=== PATIENT | female | born 1985 | race African-American/Black ===

== ENCOUNTER 2016-02-26 22:39 | Inpatient (IN) ==
[2016-02-26] MEDS ORDERED: ONDANSETRON 4 MG/2 ML VIAL IV STA (23:43)
[2016-02-26] MEDS ORDERED: PANTOPRAZOLE 40 MG VIAL IV STA (23:43)
[2016-02-26] MEDS ORDERED: SODIUM CHLORIDE 0.9% 1,000 ML IV STA (23:43)
[2016-02-26] MEDS ORDERED: ALUM/MAG/SIMETH/LIDO VISC 1:1 30 ML BOTTLE PO STA (23:43)
[2016-02-26] MEDS ORDERED: HYDROmorphone 2 MG/1 ML VIAL IV STA (23:43)
--- NOTE | 2016-02-27 | Emergency Department Note ---
Victor Hugo Johns [place], am scribing for, and in the presence of, Giovany Sullivan MD 23:49. Nate Johns Charles R, MD, personally performed the services described in this documentation, ascribed by Rolando Gay in my presence, and it is both accurate and complete . Arrival - Arrival Chief Complaint: Sickle Cell Stated Complaint: SICKLE CELL CRISIS ED Nursing Triage Note: pt presented to triage ambulatory via w/c with c/o lower back pain and sarah knee pain and N/V. pt has hx of SCD. pain unrelieved with morphine and diluadid at home. pain worse tonight. pt also c/o swelling to face and neck x 2 days and TOLENTINO. Mode of Arrival: Wheelchair Limitations: No Limitations Source: Patient Time Seen by Provider: 02/26/16 23:30 - History of Present Illness HPI Narrative: Pt is a 30 y/o black female presenting to the ED with c/o lower back pain, bilateral knee, pain,TOLENTINO, chest pain, and nausea/vomiting. Pt states the base of her neck has questionable swelling. Pt has PMHx of sickle cell. She took Zofran for the nausea but states this did not work. Pt states she has not had any urinary sxs. Pt denies fever, chills, and diarrhea. Consistency: constant Severity: moderate Date of Last Menstrual Period: 02/01/16 Allergies/Adverse Reactions: Allergies Allergy/AdvReac Type Severity Reaction Status Date / Time plastic tape Allergy ITCHING Uncoded 10/09/15 21:05 Home Medications: Home Medications Medication Instructions Recorded Confirmed Type Folic Acid Tab 1 mg PO DAILY tablet 05/25/14 02/20/16 Rx HYDROmorphone TAB [Dilaudid Tab] 4 mg PO Q4H PRN 09/03/14 02/20/16 History Morphine ER Tab [Ms Contin] 30 mg PO Q12H PRN 12/03/14 02/20/16 History Morphine Ir Tab [Morphine IR Tab] 15 mg PO Q4HR PRN 12/03/14 02/20/16 History Deferasirox [Jadenu] 4 tablet PO DAILY 04/26/15 02/20/16 History Hydroxyurea [Hydrea] 2 tablet PO DAILY 04/26/15 02/20/16 History Rivaroxaban [Xarelto] 20 mg PO DAILY W/SUPPER tablet 10/16/15 02/20/16 Rx Azithromycin [Zithromax] 500 mg PO DAILY #5 tablet 02/20/16 Rx Review of System - Review of System 12 point system: reviewed and no additional remarkable complaints except as stated - Review of System Constitutional: Absent: chills, weakness Eyes: Absent: vision change Head/Ears/Nose/Throat: Absent: earache, nasal drainage Respiratory: Absent: cough, wheezing Cardiovascular: Absent: chest pain, dyspnea on exertion Gastrointestinal: Present: nausea, vomiting. Absent: abdominal pain, diarrhea Genitourinary female: Absent: dysuria Musculoskeletal: Present: arm pain, back pain, leg pain, neck pain, upper back pain Skin: Absent: rash Neurological: Present: headache. Absent: weakness, numbness, confusion, abnormal gait, vertigo Psychiatric: Absent: anxiety Endocrine: Absent: fatigue Allergic/Immunologic: Absent: facial swelling Medical,Surgical,& Family Hx - Medical History Psychological: History of: Anxiety Disorders HEENT: History of: HEENT Problems (nose bleed) Respiratory: History of: Bronchitis, Pneumonia Hematology: History of: Anemia, Sickle Cell Disease, Blood Disorders - Surgical History Thoracic Surgeries: Patient denies;: Organ Transplant, Lobectomy Neurologic Surgeries: Patient denies: Neurologic Surgery HEENT Surgeries: Surgical HX of: Tonsilectomy & Adenoidectomy (1993) Abdominal Surgeries: Surgical HX of: Appendectomy, Cholecystectomy (2005) Reproductive Surgeries: Patient denies;: Genitourinary Surgery Orthopedic Surgeries: Surgical HX of;: Orthopedic Surgery (left sholder replacement in 2008), Total Hip Replacement (2007) - Family History Family History: Reports;: Family Hypertension (grandmother) Denies;: Family Diabetes Comment Only: Family Cancer (grandfather had mouth cancer) - Social History Smoking Status: Never smoker Frequency of Alcohol Use: None Type of Drug Use: None Exam Vital Signs: Vital Signs Temperature 98.9 F 02/26/16 22:51 Pulse Rate 92 H 02/26/16 22:51 Respiratory Rate 16 02/26/16 22:51 Blood Pressure 106/65 02/26/16 22:51 O2 Sat by Pulse Oximetry 94 L 02/26/16 22:51 - General General appearance: alert, in no apparent distress - Head Head exam: Present: atraumatic, normocephalic, normal inspection - Eye Eye exam: Present: normal appearance, PERRL, EOMI - ENT ENT exam: Present: normal exam, normal oropharynx, mucous membranes moist, TM's normal bilaterally, normal external ear exam - Neck Neck exam: Present: normal inspection, full ROM, trachea midline, other ( questionable neck edema ). Absent: tenderness - Chest Chest inspection: Present: normal inspection, symmetric chest wall rise. Absent : tenderness - Respiratory Respiratory exam: Present: normal lung sounds bilaterally - Cardiovascular Cardiovascular exam: Present: normal rhythm, tachycardia, normal heart sounds. Absent: regular rate - Abdominal Exam Abdominal exam: Present: soft, normal bowel sounds. Absent: distention, tenderness - Extremities Exam Extremities exam: Present: normal inspection, full ROM, normal capillary refill. Absent: tenderness, pedal edema, calf tenderness - Back Exam Back exam: Present: normal inspection, full ROM. Absent: tenderness - Neurological Exam Neurological exam: Present: alert, oriented X3, CN II-XII intact, normal gait, reflexes normal - Psychiatric Psychiatric exam: Present: normal affect, normal mood - Skin Skin exam: Present: warm, dry, intact, normal color. Absent: rash Course - Consultations Consultation #1: Dr. Hdez will admit patient Time: 01:09 Results - Labs CBC & BMP: 02/26/16 00:07 Lab Results: I have reviewed the patients labs Disposition Clinical Impression: Anemia, Sickle cell pain crisis, Sickle cell disease, history of avascular necrosis, Acute pain Case discussed with: patient, patient's family Disposition: Still a Patient Condition: Stable Time of Disposition: 01:09
[2016-02-27] MEDS ORDERED: ONDANSETRON 4 MG/2 ML VIAL ONE (00:03)
[2016-02-27] MEDS ORDERED: PANTOPRAZOLE 40 MG VIAL IV ONE (00:03)
[2016-02-27] MEDS ORDERED: HYDROmorphone 2 MG/1 ML VIAL ONE ×2 (00:03→01:45)
[2016-02-27] MEDS ORDERED: ALUM/MAG/SIMETH/LIDO VISC 1:1 30 ML BOTTLE PO ONE (00:04)
[2016-02-27] MEDS ORDERED: diphenhydrAMINE CAP 50 MG CAPSULE ONE (00:32)
[2016-02-27] MEDS ORDERED: PROMETHAZINE 25 MG/1 ML VIAL ONE (00:32)
[2016-02-27 00:46] LABS: Basophils % 0.1 % (0.0-0.8); Eosinophils # 0.8 10*3/uL (0.0-0.87); Eosinophils % 5.8 % (0.00-10.9); Immature Granulocytes % 0.4 %; Immature Granulocytes Absolute 0.05 #; Lymphocytes # 5.9 10*3/uL (1.4-4.0); Lymphocytes % 41.3 % (21.3-54.2); Mean Corpuscular HGB Conc 35.2 GM/DL (32-36); Mean Corpuscular Hemoglobin 34 PG (27-34); Mean Corpuscular Volume 96.7 FL (87-102); Mean Platelet Volume 10.7 FL (9.6-12.0); Monocytes # 1.2 10*3/uL (0.11-0.8); Monocytes % 8.1 % (1.7-12.7); NRBC # 1.02 10*3/uL; Neutrophils # 6.3 10*3/uL (1.4-7.4); Neutrophils % 44.3 % (38.7-73.9); Platelet Count 306 10*3/uL (130-400); Red Blood Count 1.82 10*6/uL (3.8-5.5); Red Cell Distribution Width 20.3 % (9.3-17.3); White Blood Count 14.3 10*3/uL (4.5-13.71)
[2016-02-27 00:53] LABS: Hemoglobin 6.2 GM/DL (12.0-16.0)
[2016-02-27 00:54] LABS: Hematocrit 17.6 VOL% (35.7-47.0)
[2016-02-27 01:04] LABS: Apearance,Urine CLEAR (Clear); Bilirubin,Urine Negative (Negative); Blood, Urine Moderate mg/dL (Negative); Glucose,Urine (UA) Negative (Negative); Ketones,Urine Negative (Negative); Nitrite,Urine Negative (Negative); Protein,Urine 100 MG/DL; RBC,Urine 2 /HPF (0-4); Squamous Epithelial Cell,Urine Occasional /HPF (0-10); Urine Color Yellow (Yellow); Urine Specific Gravity 1.011 (1.001-1.035); WBC,Urine <1 /HPF (0-6)
[2016-02-27 01:16] LABS: Lactic Acid 0.9 MMOL/L (0.4-2.0)
[2016-02-27 01:18] LABS: Eosinophils 7 % (0-10); Lymphocytes 45 % (20-55); Nucleated Red Blood Cells 5 (0-5); Segmented Neutrophils 42 % (50-85); Total Cells Counted 100
[2016-02-27 01:19] LABS: Alanine Aminotransferase 57 U/L (13-56); Albumin 3.3 G/DL (3.4-5.0); Alkaline Phosphatase 103 U/L (45-117); Amylase 55 U/L (25-115); Aspartate Amino Transferase 87 U/L (0-37); Blood Urea Nitrogen 16 MG/DL (7-18); Calcium 8.4 MG/DL (8.5-10.1); Glucose 88 MG/DL (74-106); Magnesium 1.9 MG/DL (1.8-2.4); Potassium 4.2 MMOL/L (3.5-5.1); Sodium 143 MMOL/L (136-145); Total Protein 7.7 G/DL (6.4-8.3); Troponin I Only < 0.015 NG/ML (0.00-0.045)
[2016-02-27 01:23] LABS: Sickle Cells 1+
--- NOTE | 2016-02-27 01:23 | Hospitalist History & Physical ---
Assessment and Plan (1) Sickle cell pain crisis Status: Acute Current Visit: Yes (2) Sickle cell anemia Status: Acute Current Visit: No (3) history of avascular necrosis Status: Acute Current Visit: No (4) Anemia, chronic disease Status: Chronic Assessment and plan: Plan for this patient #1 admit the patient our service #2 IV narcotics #3 by mouth Benadryl #4 home meds as appropriate #5 the patient will most likely need a transfusion. Current Visit: No History of Present Illness Chief complaint: sickle cell pain History of present illness: Ms. Victor Hugo Stack is a 30 year old female with past medical history sickle cell pain well-known to our service presents the ER tonight. Patient states that she 's been hurting for several days. She's been rate previously seen last week in the ER and got some Rocephin and a Z-Jefferson. Patient felt like she having some facial swelling although is mild and having her usual pain crisis. Patient reports she hurts all over. Patient's had nausea and headache 1 day. She's been trying to take her by mouth medications but has not been having good results. Her H&H was significantly reduced from last time in the er I was consulted to admit her. Home Medications Medication Instructions Recorded Confirmed Type Folic Acid Tab 1 mg PO DAILY tablet 05/25/14 02/20/16 Rx HYDROmorphone TAB [Dilaudid Tab] 4 mg PO Q4H PRN 09/03/14 02/20/16 History Morphine ER Tab [Ms Contin] 30 mg PO Q12H PRN 12/03/14 02/20/16 History Morphine Ir Tab [Morphine IR Tab] 15 mg PO Q4HR PRN 12/03/14 02/20/16 History Deferasirox [Jadenu] 4 tablet PO DAILY 04/26/15 02/20/16 History Hydroxyurea [Hydrea] 2 tablet PO DAILY 04/26/15 02/20/16 History Rivaroxaban [Xarelto] 20 mg PO DAILY W/SUPPER tablet 10/16/15 02/20/16 Rx Azithromycin [Zithromax] 500 mg PO DAILY #5 tablet 02/20/16 Rx Allergies Allergy/AdvReac Type Severity Reaction Status Date / Time plastic tape Allergy ITCHING Uncoded 10/09/15 21:05 Medical,Surgical,& Family Hx - Medical History Psychological: History of: Anxiety Disorders HEENT: History of: HEENT Problems (nose bleed) Respiratory: History of: Bronchitis, Pneumonia Hematology: History of: Anemia, Sickle Cell Disease, Blood Disorders - Surgical History Thoracic Surgeries: Patient denies;: Organ Transplant, Lobectomy Neurologic Surgeries: Patient denies: Neurologic Surgery HEENT Surgeries: Surgical HX of: Tonsilectomy & Adenoidectomy (1993) Abdominal Surgeries: Surgical HX of: Appendectomy, Cholecystectomy (2005) Reproductive Surgeries: Patient denies;: Genitourinary Surgery Orthopedic Surgeries: Surgical HX of;: Orthopedic Surgery (left sholder replacement in 2008), Total Hip Replacement (2007) - Family History Family History: Reports;: Family Hypertension (grandmother) Denies;: Family Diabetes Comment Only: Family Cancer (grandfather had mouth cancer) - Social History Smoking Status: Never smoker Frequency of Alcohol Use: None Type of Drug Use: None 12 point system: reviewed and no additional remarkable complaints except as stated Exam - Constitutional Vitals: Period Temp Pulse Resp BP Sys/Whaley Pulse Ox Last 24 Hr 98.9 F 92 16 106/65 94 - General General appearance: alert, in no apparent distress - Head Head exam: Present: atraumatic, normocephalic, normal inspection - Eye Eye exam: Present: normal appearance, PERRL, EOMI - ENT ENT exam: Present: normal exam, normal oropharynx, mucous membranes moist, TM's normal bilaterally, normal external ear exam - Neck Neck exam: Present: normal inspection, full ROM, trachea midline, other ( questionable neck edema ). Absent: tenderness - Chest Chest inspection: Present: normal inspection, symmetric chest wall rise. Absent : tenderness - Respiratory Respiratory exam: Present: normal lung sounds bilaterally - Cardiovascular Cardiovascular exam: Present: normal rhythm, tachycardia, normal heart sounds. Absent: regular rate - Abdominal Exam Abdominal exam: Present: soft, normal bowel sounds. Absent: distention, tenderness - Extremities Exam Extremities exam: Present: normal inspection, full ROM, normal capillary refill. Absent: tenderness, pedal edema, calf tenderness - Back Exam Back exam: Present: normal inspection, full ROM. Absent: tenderness - Neurological Exam Neurological exam: Present: alert, oriented X3, CN II-XII intact, normal gait, reflexes normal - Psychiatric Psychiatric exam: Present: normal affect, normal mood - Skin Skin exam: Present: warm, dry, intact, normal color. Absent: rash Results - Labs CBC & BMP: 02/26/16 00:07
[2016-02-27 01:24] LABS: Target Cells Few
[2016-02-27 01:28] LABS: Platelet Estimate Normal
[2016-02-27 01:29] LABS: Anisocytosis 2+; Microcytosis 2+
[2016-02-27] MEDS ORDERED: ENOXAPARIN 40 MG/0.4 ML SYRINGE SUBCUT SCH (01:30)
[2016-02-27] MEDS ORDERED: SODIUM CHLORIDE 0.9% 250 ML IV PRN (01:41)
[2016-02-27] MEDS: HYDROmorphone 2 MG/1 ML VIAL IV PRN ×7 (01:52→22:33)
[2016-02-27] MEDS ORDERED: diphenhydrAMINE CAP 50 MG CAPSULE PO STA (01:57)
[2016-02-27] MEDS ORDERED: PROMETHAZINE INJ 25 MG in SODIUM CHLORIDE 0.9% 50 ML IV STA (01:58)
[2016-02-27] MEDS ORDERED: PROMETHAZINE 25 MG/1 ML VIAL IM STA (02:00)
[2016-02-27] MEDS: SODIUM CHLORIDE 0.9% 1,000 ML IV SCH ×2 (02:49→10:33)
[2016-02-27 05:54] LABS: Albumin 3.4 G/DL (3.4-5.0); Bilirubin,Total 1.8 MG/DL (0.2-1.0); Calcium 7.9 MG/DL (8.5-10.1); Potassium 4.3 MMOL/L (3.5-5.1); Total Protein 7.5 G/DL (6.4-8.3)
[2016-02-27] MEDS ORDERED: diphenhydrAMINE CAP 25 MG CAPSULE PO SCH (06:00)
--- NOTE | 2016-02-27 06:38 | XRay Report ---
XR abdomen 2V Indication: Abdominal pain. Abdomen 3 views: Bilateral SUDHEER noted. Patient is osteopenic. Normal amount of stool and gas is shown the colon. There is a paucity of central bowel markings similar to the study from 12/08/14. Liver is enlarged with the right lobe extending well into the right pelvis. Right upper quadrant surgical clips noted. Impression: No bowel obstruction identified. Hepatomegaly. PROCEDURE INTERPRETED AT [facility] DEPARTMENT OF RADIOLOGY Final Report Signed by: Jeff Medina M.D.
--- NOTE | 2016-02-27 06:39 | XRay Report ---
XR chest 1V portable Indication: Abdominal pain. Chest one view: Comparison 02/20/16. Mediport, normal heart size and mediastinal contour, coarsened interstitial markings throughout both lungs without focal infiltrate, left shoulder hemiarthroplasty, and coarsened trabecular features of the bones are stable. No new infiltrates are identified. Impression: Little significant change. Suspect sickle cell crisis. PROCEDURE INTERPRETED AT [facility] DEPARTMENT OF RADIOLOGY Final Report Signed by: Jeff Medina M.D.
[2016-02-27 06:58] LABS: Basophils % 0.1 % (0.0-0.8); Eosinophils % 6.7 % (0.00-10.9); Immature Granulocytes % 0.4 %; Immature Granulocytes Absolute 0.06 #; Lymphocytes # 7.2 10*3/uL (1.4-4.0); Lymphocytes % 49.3 % (21.3-54.2); Mean Corpuscular HGB Conc 35.4 GM/DL (32-36); Mean Corpuscular Hemoglobin 35 PG (27-34); Mean Corpuscular Volume 98.3 FL (87-102); Mean Platelet Volume 10.5 FL (9.6-12.0); Monocytes # 1.3 10*3/uL (0.11-0.8); NRBC # 1.01 10*3/uL; Neutrophils % 34.5 % (38.7-73.9); Platelet Count 273 10*3/uL (130-400); Red Blood Count 1.78 10*6/uL (3.8-5.5); Red Cell Distribution Width 19.9 % (9.3-17.3); White Blood Count 14.5 10*3/uL (4.5-13.71)
[2016-02-27 07:09] LABS: Hematocrit 17.5 VOL% (35.7-47.0); Hemoglobin 6.2 GM/DL (12.0-16.0)
[2016-02-27 07:23] LABS: Elliptocytes Few; Eosinophils 5 % (0-10); Lymphocytes 58 % (20-55); Macrocytosis Slight; Nucleated Red Blood Cells 16 (0-5); Platelet Estimate Adequate; Polychromasia Slight; Segmented Neutrophils 28 % (50-85); Sickle Cells 1+; Target Cells Few; Total Cells Counted 100
[2016-02-27] MEDS ORDERED: HYDROXYUREA 500 MG CAPSULE PO SCH (09:00)
[2016-02-27] MEDS ORDERED: FOLIC ACID 1 MG TABLET PO SCH (09:00)
[2016-02-27] MEDS ORDERED: DEFERASIROX PO SCH (09:00)
[2016-02-27] MEDS ORDERED: PANTOPRAZOLE 40 MG TABLET PO SCH (09:00)
--- NOTE | 2016-02-27 09:03 | EKG Report ---
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
--- NOTE | 2016-02-27 09:51 | Hospitalist Progress Note ---
<RadhaRosmery N - Last Filed: 02/27/16 09:46> Assessment and Plan (1) Anemia Status: Acute Assessment and plan: transfuse 2 units when available, Current Visit: Yes (2) Sickle cell pain crisis Status: Acute Assessment and plan: continue on IV hydration change Benadryl to IV continue IV narcotics and PO home narcotics start on supplemental O2 per NC pt is sitting in bed with rails down and bed elevated, nursing staff and myself have educated her on the dangers of this, she has refused compliance. Current Visit: Yes Hospitalist: Subjective Interval history: Ms. Stack is seen this morning sitting up in bed, crying, complaining of generalized pain and itching. She is currently not on oxygen, is receiving PO Benadryl and IV narcotics. Her H/H this morning is 07/27, due the difficulty in obtaining compatible blood for her, she will not be able to receive her transfusion until hopefully tomorrow. Exam - Constitutional Vitals: Period Temp Pulse Resp BP Sys/Whaley Pulse Ox Last 24 Hr 97.6 F-97.9 F 81-101 20-20 94-102/52-58 92-96 General appearance: no acute distress - Head Head exam: Present: normal inspection, normocephalic - Eye Eye exam: Present: EOMI. Absent: scleral icterus Pupils: Present: XENIA, normal accommodation - ENT ENT exam: Present: normal exam, normal oropharynx - Neck Neck exam: Present: normal inspection. Absent: lymphadenopathy - Respiratory Respiratory exam: Present: clear to auscultation bilaterally. Absent: wheezes - Cardiovascular Cardiovascular exam: Present: regular rate and rhythm. Absent: tachycardia - GI/Abdominal GI/Abdominal exam: Present: normal bowel sounds, soft. Absent: tenderness - Extremities Exam Extremities exam: Present: normal inspection, full ROM. Absent: edema - Back Exam Back exam: Present: normal inspection. Absent: muscle spasm - Neurological Exam Neurological exam: Present: alert, oriented X3 - Psychiatric Psychiatric exam: Present: normal affect, normal mood - Skin Skin exam: Present: normal color, warm, dry Results - Labs CBC & BMP: 02/27/16 05:38 02/27/16 05:38 Lab Results: I have reviewed the past 24 hour labs <Deborah Yeung - Last Filed: 02/27/16 17:35> Hospitalist: Subjective Interval history: This is an addendum to PROCESSING ENGINEER note: agree with A/P Pt is alert, oriented, no distress noted, itching all over c/o generalized weakness, worse in lower back HH -6:17 this am, stable since admit, total bili 1.8 waiting for RBCs to be transfused, may not be able to receive blood today/ tonight due to compatibility cont IV dilaudid 2 mg IV q 3 hrs and benadryl 25 mg PRN cont hydroxyurea and folic acid IV fluids as per protocol and O2 L PRN for SOB recheck HH in am Exam - Constitutional Vitals: Period Temp Pulse Resp BP Sys/Whaley Pulse Ox Last 24 Hr 97.1 F-97.9 F 81-101 18-20 94-102/52-59 92-96 Results - Labs CBC & BMP: 02/27/16 05:38 02/27/16 05:38
[2016-02-27] MEDS: diphenhydrAMINE 50 MG/1 ML VIAL IV PRN ×3 (10:32→22:33)
[2016-02-27] MEDS: HYDROXYUREA 500 MG CAPSULE PO SCH (16:37)
[2016-02-27] MEDS: PANTOPRAZOLE 40 MG TABLET PO SCH (16:37)
[2016-02-27] MEDS: FOLIC ACID 1 MG TABLET PO SCH (16:37)
[2016-02-27] MEDS: RIVAROXABAN 20 MG TABLET PO SCH (16:37)
[2016-02-27] MEDS: ONDANSETRON 4 MG/2 ML VIAL IV PRN (23:49)
[2016-02-28] MEDS: HYDROmorphone 2 MG/1 ML VIAL IV PRN ×8 (01:39→22:48)
[2016-02-28] MEDS: diphenhydrAMINE 50 MG/1 ML VIAL IV PRN ×4 (04:51→22:49)
[2016-02-28] MEDS: SODIUM CHLORIDE 0.9% 1,000 ML IV SCH ×3 (05:23→16:28)
[2016-02-28 05:36] LABS: Basophils % 0.3 % (0.0-0.8); Eosinophils # 0.9 10*3/uL (0.0-0.87); Eosinophils % 6.3 % (0.00-10.9); Hematocrit 20.4 VOL% (35.7-47.0); Hemoglobin 7.2 GM/DL (12.0-16.0); Immature Granulocytes % 0.6 %; Immature Granulocytes Absolute 0.08 #; Lymphocytes # 6.2 10*3/uL (1.4-4.0); Lymphocytes % 42.6 % (21.3-54.2); Mean Corpuscular HGB Conc 35.3 GM/DL (32-36); Mean Corpuscular Hemoglobin 33 PG (27-34); Mean Corpuscular Volume 94.4 FL (87-102); Mean Platelet Volume 10.8 FL (9.6-12.0); Monocytes # 1.2 10*3/uL (0.11-0.8); Monocytes % 8.6 % (1.7-12.7); NRBC # 1.08 10*3/uL; Neutrophils # 6.1 10*3/uL (1.4-7.4); Neutrophils % 41.6 % (38.7-73.9); Platelet Count 328 10*3/uL (130-400); Red Blood Count 2.16 10*6/uL (3.8-5.5); Red Cell Distribution Width 19.5 % (9.3-17.3); White Blood Count 14.5 10*3/uL (4.5-13.71)
[2016-02-28 06:06] LABS: Albumin 3.6 G/DL (3.4-5.0); Bilirubin,Total 1.9 MG/DL (0.2-1.0); Calcium 8.6 MG/DL (8.5-10.1); Osmolality,Calculated 285.8 MOS/KG (273-304); Potassium 4.9 MMOL/L (3.5-5.1); Total Protein 7.9 G/DL (6.4-8.3)
--- NOTE | 2016-02-28 11:18 | Hospitalist Progress Note ---
<RadhaRosmery N - Last Filed: 02/28/16 11:16> Assessment and Plan (1) Anemia Status: Acute Assessment and plan: one more unit if necessary and when available Current Visit: Yes (2) Sickle cell pain crisis Status: Acute Assessment and plan: continue on IV hydration change Benadryl to IV continue IV narcotics and PO home narcotics start on supplemental O2 per NC pt is sitting in bed with rails down and bed elevated, nursing staff and myself have educated her on the dangers of this, she has refused compliance. Current Visit: Yes Hospitalist: Subjective Interval history: Ms. Gay is seen this morning, she was asleep when I walked in, easily aroused , states she is still in severe pain. She was able to get one unit of blood, counts minimally improved. We will continue IV hydration, supplemental O2, IV narcotics and Benadryl. Exam - Constitutional Vitals: Period Temp Pulse Resp BP Sys/Whaley Pulse Ox Last 24 Hr 97.1 F-98.7 F 86-104 16-21 94-127/51-64 91-93 General appearance: no acute distress - Head Head exam: Present: normal inspection, normocephalic - Eye Eye exam: Present: EOMI. Absent: scleral icterus Pupils: Present: XENIA, normal accommodation - ENT ENT exam: Present: normal exam, normal oropharynx - Neck Neck exam: Present: normal inspection. Absent: lymphadenopathy - Respiratory Respiratory exam: Present: clear to auscultation bilaterally. Absent: wheezes - Cardiovascular Cardiovascular exam: Present: regular rate and rhythm. Absent: tachycardia - GI/Abdominal GI/Abdominal exam: Present: normal bowel sounds, soft. Absent: tenderness - Extremities Exam Extremities exam: Present: normal inspection, full ROM. Absent: edema - Back Exam Back exam: Present: normal inspection. 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: Pt is alert, oriented, some distress noted due to back pain s/p 1 unit RBC transfused last night and 1 more is ready to be transfused now cont IV dilaudid 2 mg IV q 3 hrs and benadryl 25 mg PRN cont hydroxyurea and folic acid O2 L PRN for SOB HH went up to recheck HH in am 7.2/20.4 (from 6.2) total bili is up to 1.9, possibly still sickling she has b/l exophtalmus and some orbital edema will check her TSH, free T4 recheck HH in am Exam - Constitutional Vitals: Period Temp Pulse Resp BP Sys/Whaley Pulse Ox Last 24 Hr 97.1 F-98.7 F 86-104 16-21 94-127/51-64 91-93 Results - Labs CBC & BMP: 02/28/16 04:55 02/28/16 04:55
[2016-02-28] MEDS: FOLIC ACID 1 MG TABLET PO SCH ×2 (13:37→16:38)
[2016-02-28] MEDS: PANTOPRAZOLE 40 MG TABLET PO SCH ×2 (13:37→16:38)
[2016-02-28] MEDS: HYDROXYUREA 500 MG CAPSULE PO SCH ×2 (13:37→16:38)
[2016-02-28] MEDS: RIVAROXABAN 20 MG TABLET PO SCH (16:38)
[2016-02-29] MEDS: HYDROmorphone 2 MG/1 ML VIAL IV PRN ×7 (01:43→22:12)
[2016-02-29] MEDS: ONDANSETRON 4 MG/2 ML VIAL IV PRN (04:15)
[2016-02-29] MEDS: diphenhydrAMINE 50 MG/1 ML VIAL IV PRN ×4 (04:17→22:11)
[2016-02-29 05:27] LABS: Basophils % 0.4 % (0.0-0.8); Eosinophils # 0.8 10*3/uL (0.0-0.87); Eosinophils % 7.4 % (0.00-10.9); Hemoglobin 7.4 GM/DL (12.0-16.0); Immature Granulocytes % 0.3 %; Immature Granulocytes Absolute 0.03 #; Lymphocytes # 4.6 10*3/uL (1.4-4.0); Lymphocytes % 44.4 % (21.3-54.2); Mean Corpuscular HGB Conc 33.6 GM/DL (32-36); Mean Corpuscular Hemoglobin 32 PG (27-34); Mean Corpuscular Volume 96.1 FL (87-102); Mean Platelet Volume 10.6 FL (9.6-12.0); Monocytes # 0.9 10*3/uL (0.11-0.8); Monocytes % 8.5 % (1.7-12.7); NRBC # 1.19 10*3/uL; Platelet Count 281 10*3/uL (130-400); Red Blood Count 2.29 10*6/uL (3.8-5.5); Red Cell Distribution Width 19.9 % (9.3-17.3); White Blood Count 10.3 10*3/uL (4.5-13.71)
[2016-02-29 06:31] LABS: Eosinophils 9 % (0-10); Hypochromasia 1+; Lymphocytes 51 % (20-55); Macrocytosis 1+; Nucleated Red Blood Cells 19 (0-5); Polychromasia Slight; Segmented Neutrophils 31 % (50-85); Sickle Cells 1+; Total Cells Counted 100
[2016-02-29 06:32] LABS: Target Cells Slight
[2016-02-29 06:33] LABS: Howell-Jolly Bodies Slight; Ovalocytes Slight; Pappenheimer Bodies Slight
[2016-02-29] MEDS: DEFERASIROX PO SCH ×3 (08:08→15:11)
--- NOTE | 2016-02-29 13:04 | Hospitalist Progress Note ---
Assessment and Plan (1) Acute sickle cell crisis Status: Resolved Assessment and plan: 02/29/16: Improving I'm weaning her from IV pain medications. She was getting Dilaudid 2 mg IV every 2 hours I will decrease it to 1 mg every 4 hours and restart her oral MS Contin. Current Visit: No (2) Anemia, chronic disease Status: Chronic Current Visit: No (3) Sickle cell anemia Status: Acute Current Visit: No Hospitalist: Subjective Interval history: 30-year-old female with history of sickle cell disease who was admitted for acute sickle cell crisis. Patient states she is still with a significant amount of pain; however, upon entering the room she was sitting up in the bed with her notepad appears to be comfortable and in no obvious distress or pain. Exam - Constitutional Vitals: Period Temp Pulse Resp BP Sys/Whaley Pulse Ox Last 24 Hr 97.1 F-98.6 F 80-94 18-20 105-120/60-77 93-97 General appearance: no acute distress - Head Head exam: Present: normocephalic, atraumatic - Eye Eye exam: Present: EOMI Pupils: Present: XENIA - Neck Neck exam: Present: normal inspection - Respiratory Respiratory exam: Present: clear to auscultation bilaterally - Cardiovascular Cardiovascular exam: Present: regular rate and rhythm - GI/Abdominal GI/Abdominal exam: Present: normal bowel sounds, soft - Extremities Exam Extremities exam: Present: full ROM - Neurological Exam Neurological exam: Present: alert, oriented X3, CN II-XII intact - Psychiatric Psychiatric exam: Present: normal affect, normal mood - Skin Skin exam: Present: warm, intact Results - Labs CBC & BMP: 02/29/16 04:00 02/28/16 04:55
[2016-02-29] MEDS: PANTOPRAZOLE 40 MG TABLET PO SCH (16:33)
[2016-02-29] MEDS: HYDROXYUREA 500 MG CAPSULE PO SCH (16:33)
[2016-02-29] MEDS: FOLIC ACID 1 MG TABLET PO SCH (16:33)
[2016-02-29] MEDS: MORPHINE ER 30 MG TABLET PO PRN (16:33)
[2016-02-29] MEDS: RIVAROXABAN 20 MG TABLET PO SCH (16:33)
[2016-02-29] MEDS ORDERED: HYDROmorphone 2 MG/1 ML VIAL IV ONE (17:41)
[2016-03-01] MEDS: HYDROmorphone 2 MG/1 ML VIAL IV PRN ×5 (02:21→22:06)
[2016-03-01 04:57] LABS: Basophils # 0.1 10*3/uL (0.0-0.2); Basophils % 0.5 % (0.0-0.8); Eosinophils # 0.9 10*3/uL (0.0-0.87); Eosinophils % 8.2 % (0.00-10.9); Hematocrit 23.6 VOL% (35.7-47.0); Hemoglobin 8.2 GM/DL (12.0-16.0); Immature Granulocytes % 0.4 %; Immature Granulocytes Absolute 0.04 #; Lymphocytes # 3.6 10*3/uL (1.4-4.0); Lymphocytes % 33.3 % (21.3-54.2); Mean Corpuscular HGB Conc 34.7 GM/DL (32-36); Mean Corpuscular Hemoglobin 33 PG (27-34); Mean Corpuscular Volume 94.4 FL (87-102); Mean Platelet Volume 10.7 FL (9.6-12.0); Monocytes # 1.1 10*3/uL (0.11-0.8); Monocytes % 10.5 % (1.7-12.7); NRBC # 1.51 10*3/uL; Neutrophils % 47.1 % (38.7-73.9); Platelet Count 289 10*3/uL (130-400); Red Cell Distribution Width 19.7 % (9.3-17.3); White Blood Count 10.7 10*3/uL (4.5-13.71)
[2016-03-01 05:22] LABS: Elliptocytes Few; Eosinophils 7 % (0-10); Hypochromasia 1+; Lymphocytes 44 % (20-55); Nucleated Red Blood Cells 15 (0-5); Platelet Estimate Adequate; Segmented Neutrophils 46 % (50-85); Target Cells Few; Total Cells Counted 100
[2016-03-01 05:23] LABS: Macrocytosis 1+; Pappenheimer Bodies Slight; Sickle Cells 1+
[2016-03-01 05:24] LABS: Polychromasia Slight
[2016-03-01] MEDS: diphenhydrAMINE 50 MG/1 ML VIAL IV PRN ×3 (06:28→18:03)
[2016-03-01] MEDS: MORPHINE ER 30 MG TABLET PO PRN ×2 (09:48→22:10)
[2016-03-01] MEDS: DEFERASIROX PO SCH (09:48)
[2016-03-01] MEDS ORDERED: HEPARIN LOCK FLUSH 500 UNIT/5 ML SYRINGE IV ONE ×2 (10:29→22:03)
[2016-03-01] MEDS ORDERED: HYDROmorphone 2 MG/1 ML VIAL IV ONE (12:07)
[2016-03-01] MEDS: HYDROXYUREA 500 MG CAPSULE PO SCH (18:07)
[2016-03-01] MEDS: FOLIC ACID 1 MG TABLET PO SCH (18:07)
[2016-03-01] MEDS: RIVAROXABAN 20 MG TABLET PO SCH (18:07)
[2016-03-01] MEDS: PANTOPRAZOLE 40 MG TABLET PO SCH (18:07)
[2016-03-02] MEDS ORDERED: HEPARIN LOCK FLUSH 500 UNIT/5 ML SYRINGE IV ONE ×6 (00:08→23:13)
[2016-03-02] MEDS: diphenhydrAMINE 50 MG/1 ML VIAL IV PRN ×4 (00:13→19:20)
[2016-03-02] MEDS: HYDROmorphone 2 MG/1 ML VIAL IV PRN ×6 (02:23→23:20)
[2016-03-02] MEDS: DEFERASIROX PO SCH (10:39)
--- NOTE | 2016-03-02 15:27 | Hospitalist Progress Note ---
Assessment and Plan (1) Acute sickle cell crisis Status: Resolved Assessment and plan: c/w IVF as needed, pain med, antiemetic, ppi Current Visit: No (2) Sickle cell anemia Status: Acute Assessment and plan: c/w meds Current Visit: No (3) Abnormal liver function tests Status: Acute Assessment and plan: check US abd Current Visit: Yes (4) Hepatomegaly Status: Acute Current Visit: Yes Hospitalist: Subjective Interval history: Patient continues to have generalized pain and occasional nausea but no vomiting since this morning. Patient denies chest pain or shortness of breath or fever or chills or diarrhea or hemoptysis or headache or blurred vision. No acute events reported overnight. Exam - Constitutional Vitals: Period Temp Pulse Resp BP Sys/Whaley Pulse Ox Last 24 Hr 97.1 F-98.5 F 68-80 18-20 92-112/52-63 92-98 Exam: General a and O 3, in mild distress Neck no JVD and supple Heart S1-S2 present RRR Lung CT AB, no wheezing Abdomen soft nontender Extremity no edema no cyanosis Skin warm and dry HEENT: PERRL Results - Labs CBC & BMP: 03/01/16 03:50 02/28/16 04:55
[2016-03-02] MEDS: MORPHINE ER 30 MG TABLET PO PRN (17:51)
[2016-03-02] MEDS: HYDROXYUREA 500 MG CAPSULE PO SCH (17:52)
[2016-03-02] MEDS: RIVAROXABAN 20 MG TABLET PO SCH (17:52)
[2016-03-02] MEDS: FOLIC ACID 1 MG TABLET PO SCH (17:52)
[2016-03-02] MEDS: PANTOPRAZOLE 40 MG TABLET PO SCH (17:53)
[2016-03-03] MEDS ORDERED: HEPARIN LOCK FLUSH 500 UNIT/5 ML SYRINGE IV ONE ×4 (01:56→22:32)
[2016-03-03] MEDS: diphenhydrAMINE 50 MG/1 ML VIAL IV PRN ×4 (02:01→22:38)
[2016-03-03] MEDS: HYDROmorphone 2 MG/1 ML VIAL IV PRN ×5 (03:24→22:37)
--- NOTE | 2016-03-03 08:53 | Ultrasound Report ---
Exam: US abdomen Date:03/03/2016 3:32 PM Indication: Abnormal liver function test hepatomegaly Comparison: 01/26/2013 Findings: Liver: The liver is approximately 20 cm in length. Hepatic and portal veins are patent. Gallbladder: Surgically absent CBD: 5 mm Pancreas: Normal size shape configuration Kidneys Right kidney: 12.1 x 5.5 x 6.4 cm. There is no hydronephrosis or perinephric fluid collections or focal mass. Left kidney: 10.9 x 5.7 x 6 cm. There is no hydronephrosis perinephric fluid collections or focal mass. Aorta IVC: No obvious aneurysm IVC is patent Spleen: 9.8 x 4.2 x 3.7 cm. Ascites: None Impression: 1. Previous cholecystectomy 2. No focal mass is otherwise noted. Ultrasound images were stored and captured The Ultrasound images were captured and stored. PROCEDURE INTERPRETED AT [facility] DEPARTMENT OF RADIOLOGY Final Report Signed by: Dr. Dino Rocha
[2016-03-03] MEDS: DEFERASIROX PO SCH (09:01)
--- NOTE | 2016-03-03 11:14 | Hospitalist Progress Note ---
Assessment and Plan (1) Sickle-cell disease with pain Status: Acute Assessment and plan: pain med, ivf, antiemetic, O2 as needed, c/w hydroxyurea Current Visit: Yes (2) Sickle cell anemia Status: Chronic Assessment and plan: c/w meds Current Visit: No (3) Abnormal liver function tests Status: Acute Assessment and plan: abd US no acute findings. Current Visit: Yes (4) Hepatomegaly Status: Acute Current Visit: Yes Hospitalist: Subjective Interval history: Patient stating pain is improved but not fully controlled. Patient felt nauseated earlier but no vomiting. Patient denies chest pain or coughing or abdominal pain or fever or chills. No acute events reported overnight otherwise Exam - Constitutional Vitals: Period Temp Pulse Resp BP Sys/Whaley Pulse Ox Last 24 Hr 97.5 F-98.4 F 68-90 18-20 96-110/52-63 93-97 Exam: General a and O 3, in mild distress Neck no JVD and supple Heart S1-S2 present RRR Lung CT AB, no wheezing Abdomen soft nontender Extremity no edema no cyanosis Skin warm and dry HEENT: PERRL Results - Labs CBC & BMP: 03/01/16 03:50 02/28/16 04:55
[2016-03-03] MEDS: MORPHINE ER 30 MG TABLET PO PRN (12:22)
[2016-03-03] MEDS: DOCUSATE/SENNA 50-8.6 MG TABLET PO SCH (13:13)
[2016-03-03] MEDS: HYDROXYUREA 500 MG CAPSULE PO SCH (18:29)
[2016-03-03] MEDS: PANTOPRAZOLE 40 MG TABLET PO SCH (18:29)
[2016-03-03] MEDS: FOLIC ACID 1 MG TABLET PO SCH (18:29)
[2016-03-03] MEDS: RIVAROXABAN 20 MG TABLET PO SCH (18:29)
[2016-03-03] MEDS: ONDANSETRON 4 MG/2 ML VIAL IV PRN (22:37)
[2016-03-04] MEDS: MORPHINE ER 30 MG TABLET PO PRN ×2 (00:44→17:24)
[2016-03-04] MEDS ORDERED: HEPARIN LOCK FLUSH 500 UNIT/5 ML SYRINGE IV ONE ×3 (02:24→06:42)
[2016-03-04] MEDS: HYDROmorphone 2 MG/1 ML VIAL IV PRN ×6 (02:37→20:57)
[2016-03-04 05:36] LABS: Basophils % 0.3 % (0.0-0.8); Eosinophils # 1.1 10*3/uL (0.0-0.87); Eosinophils % 9.8 % (0.00-10.9); Hematocrit 21.2 VOL% (35.7-47.0); Hemoglobin 7.2 GM/DL (12.0-16.0); Immature Granulocytes % 0.2 %; Immature Granulocytes Absolute 0.02 #; Lymphocytes # 4.7 10*3/uL (1.4-4.0); Mean Corpuscular Hemoglobin 31 PG (27-34); Mean Corpuscular Volume 92.2 FL (87-102); Mean Platelet Volume 11.4 FL (9.6-12.0); Monocytes # 1.1 10*3/uL (0.11-0.8); Monocytes % 9.8 % (1.7-12.7); NRBC # 0.18 10*3/uL; Neutrophils # 4.3 10*3/uL (1.4-7.4); Neutrophils % 37.9 % (38.7-73.9); Platelet Count 233 10*3/uL (130-400); Red Cell Distribution Width 18.4 % (9.3-17.3); White Blood Count 11.2 10*3/uL (4.5-13.71)
[2016-03-04 06:09] LABS: Elliptocytes Few; Eosinophils 9 % (0-10); Hypochromasia 1+; Lymphocytes 33 % (20-55); Nucleated Red Blood Cells 3 (0-5); Platelet Estimate Adequate; Segmented Neutrophils 52 % (50-85); Sickle Cells 1+; Target Cells Few; Total Cells Counted 100
[2016-03-04 06:10] LABS: Albumin 3.1 G/DL (3.4-5.0); Bilirubin,Total 2.2 MG/DL (0.2-1.0); Calcium 8.4 MG/DL (8.5-10.1); Howell-Jolly Bodies Slight; Macrocytosis 1+; Osmolality,Calculated 283.3 MOS/KG (273-304); Potassium 4.1 MMOL/L (3.5-5.1); Total Protein 7.4 G/DL (6.4-8.3)
[2016-03-04] MEDS: ONDANSETRON 4 MG/2 ML VIAL IV PRN (06:50)
[2016-03-04] MEDS: diphenhydrAMINE 50 MG/1 ML VIAL IV PRN ×3 (06:51→18:59)
[2016-03-04] MEDS: DOCUSATE/SENNA 50-8.6 MG TABLET PO SCH (09:00)
--- NOTE | 2016-03-04 13:54 | Hospitalist Progress Note ---
Assessment and Plan (1) Sickle-cell disease with pain Status: Acute Assessment and plan: pain med, ivf, antiemetic, O2 as needed, c/w hydroxyurea. improving Current Visit: Yes (2) Sickle cell anemia Status: Chronic Assessment and plan: c/w meds. Hb7.2 Current Visit: No (3) Abnormal liver function tests Status: Acute Assessment and plan: abd US no acute findings. Current Visit: Yes (4) Hepatomegaly Status: Acute Current Visit: Yes (5) Nausea & vomiting Status: Acute Assessment and plan: ppi, antiemetic. Simplify diet to clear liq. If not better by tomrrow will c/s GI Current Visit: Yes Hospitalist: Subjective Interval history: Patient pain improving but patient still requiring IV pain medication and she is nauseated at times and she vomited this morning. Patient denies chest pain or shortness of breath or abdominal pain or blurred vision or focal weakness or numbness or headache. No fever or chills reported. No melena or hematemesis or hemoptysis. Exam - Constitutional Vitals: Period Temp Pulse Resp BP Sys/Whaley Pulse Ox Last 24 Hr 97.1 F-98.2 F 71-99 18-22 89-119/49-63 95-98 Exam: General a and O 3, NAD Neck no JVD and supple Heart S1-S2 present RRR Lung CT AB, no wheezing Abdomen soft nontender Extremity no edema no cyanosis Skin warm and dry HEENT: PERRL Results - Labs CBC & BMP: 03/04/16 04:45 03/04/16 04:45
[2016-03-04 14:51] LABS: 25 Hydroxy Vitamin D Total 12.9 NG/ML; Folate 15.9 NG/ML (5.4-24.0)
[2016-03-04] MEDS: RIVAROXABAN 20 MG TABLET PO SCH (17:23)
[2016-03-04] MEDS: HYDROXYUREA 500 MG CAPSULE PO SCH (17:23)
[2016-03-04] MEDS: PANTOPRAZOLE 40 MG TABLET PO SCH (17:23)
[2016-03-04] MEDS: FOLIC ACID 1 MG TABLET PO SCH (17:23)
[2016-03-04] MEDS: DEFERASIROX PO SCH (17:24)
[2016-03-05] MEDS: HYDROmorphone 2 MG/1 ML VIAL IV PRN ×7 (00:35→20:06)
[2016-03-05] MEDS: diphenhydrAMINE 50 MG/1 ML VIAL IV PRN ×4 (00:35→20:05)
[2016-03-05] MEDS: MORPHINE ER 30 MG TABLET PO PRN ×2 (09:18→20:05)
[2016-03-05] MEDS: PANTOPRAZOLE 40 MG TABLET PO SCH (16:54)
[2016-03-05] MEDS: FOLIC ACID 1 MG TABLET PO SCH (16:54)
[2016-03-05] MEDS: HYDROXYUREA 500 MG CAPSULE PO SCH (16:54)
[2016-03-05] MEDS: RIVAROXABAN 20 MG TABLET PO SCH (16:54)
[2016-03-05] MEDS: DOCUSATE/SENNA 50-8.6 MG TABLET PO SCH (16:55)
[2016-03-05] MEDS: DEFERASIROX PO SCH (16:55)
--- NOTE | 2016-03-05 17:19 | Hospitalist Progress Note ---
Assessment and Plan (1) Sickle-cell disease with pain Status: Acute Assessment and plan: We will plan to transition to by mouth pain medication as of tomorrow and advance diet as tolerated and see if the patient is able to tolerate diet and by mouth medication to control her pain and nausea vomiting. If no improvement consider consulting GI service. 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 With hydroxyurea Current Visit: Yes (2) Sickle cell anemia Status: Chronic Assessment and plan: c/w meds. Hb7.2 yesterday. order cbc. Current Visit: No (3) Abnormal liver function tests Status: Acute Assessment and plan: abd US no acute findings. Current Visit: Yes (4) Hepatomegaly Status: Acute Current Visit: Yes (5) Nausea & vomiting Status: Acute Assessment and plan: ppi, antiemetic. ADAD. will c/s GI. Current Visit: Yes Hospitalist: Subjective Interval history: Patient starting to feel better and having less nausea and no vomiting this morning with by mouth intake. Patient denies chest pain or SOB or fever or chills or palpitation or diarrhea or headache or blurred vision or focal weakness. Exam - Constitutional Vitals: Period Temp Pulse Resp BP Sys/Whaley Pulse Ox Last 24 Hr 97.8 F-98.6 F 76-95 18-20 94-118/50-62 93-96 Exam: General a and O 3, NAD Neck no JVD and supple Heart S1-S2 present RRR Lung CT AB, no wheezing Abdomen soft nontender Extremity no edema no cyanosis Skin warm and dry HEENT: PERRL Results - Labs CBC & BMP: 03/04/16 04:45 03/04/16 04:45
[2016-03-05 18:08] LABS: Basophils % 0.3 % (0.0-0.8); Eosinophils % 9.4 % (0.00-10.9); Hematocrit 21.1 VOL% (35.7-47.0); Hemoglobin 7.2 GM/DL (12.0-16.0); Immature Granulocytes % 0.2 %; Immature Granulocytes Absolute 0.02 #; Lymphocytes # 4.8 10*3/uL (1.4-4.0); Lymphocytes % 47.2 % (21.3-54.2); Mean Corpuscular HGB Conc 34.1 GM/DL (32-36); Mean Corpuscular Hemoglobin 32 PG (27-34); Mean Corpuscular Volume 92.5 FL (87-102); Mean Platelet Volume 10.8 FL (9.6-12.0); Monocytes # 0.8 10*3/uL (0.11-0.8); Monocytes % 8.2 % (1.7-12.7); NRBC # 0.07 10*3/uL; Neutrophils # 3.5 10*3/uL (1.4-7.4); Neutrophils % 34.7 % (38.7-73.9); Platelet Count 232 10*3/uL (130-400); Red Blood Count 2.28 10*6/uL (3.8-5.5); Red Cell Distribution Width 18.1 % (9.3-17.3); White Blood Count 10.1 10*3/uL (4.5-13.71)
[2016-03-05 18:23] LABS: Calcium 8.4 MG/DL (8.5-10.1); Osmolality,Calculated 281.4 MOS/KG (273-304); Potassium 3.9 MMOL/L (3.5-5.1)
[2016-03-05 18:45] LABS: Eosinophils 10 % (0-10); Lymphocytes 46 % (20-55); Platelet Estimate Adequate; Poikilocytosis 2+; Segmented Neutrophils 42 % (50-85); Total Cells Counted 100
[2016-03-05 18:46] LABS: Howell-Jolly Bodies Slight; Ovalocytes 1+; Sickle Cells Few; Target Cells 1+
[2016-03-06] MEDS: HYDROmorphone 2 MG/1 ML VIAL IV PRN ×5 (00:34→21:19)
[2016-03-06 05:13] LABS: Basophils % 0.3 % (0.0-0.8); Eosinophils # 0.9 10*3/uL (0.0-0.87); Eosinophils % 9.3 % (0.00-10.9); Hematocrit 20.4 VOL% (35.7-47.0); Hemoglobin 7.1 GM/DL (12.0-16.0); Immature Granulocytes % 0.2 %; Immature Granulocytes Absolute 0.02 #; Lymphocytes # 4.3 10*3/uL (1.4-4.0); Lymphocytes % 43.2 % (21.3-54.2); Mean Corpuscular HGB Conc 34.8 GM/DL (32-36); Mean Corpuscular Hemoglobin 32 PG (27-34); Mean Corpuscular Volume 91.9 FL (87-102); Mean Platelet Volume 11.8 FL (9.6-12.0); Monocytes # 1.1 10*3/uL (0.11-0.8); Monocytes % 10.5 % (1.7-12.7); NRBC # 0.08 10*3/uL; Neutrophils # 3.7 10*3/uL (1.4-7.4); Neutrophils % 36.5 % (38.7-73.9); Platelet Count 238 10*3/uL (130-400); Red Blood Count 2.22 10*6/uL (3.8-5.5); Red Cell Distribution Width 18.1 % (9.3-17.3)
[2016-03-06 05:35] LABS: Eosinophils 12 % (0-10); Hypochromasia 1+; Lymphocytes 37 % (20-55); Macrocytosis 1+; Nucleated Red Blood Cells 2 (0-5); Segmented Neutrophils 39 % (50-85); Target Cells 1+; Total Cells Counted 100
[2016-03-06 05:36] LABS: Sickle Cells Few
[2016-03-06 05:37] LABS: Howell-Jolly Bodies Slight; Ovalocytes Few; Pappenheimer Bodies Slight; Platelet Estimate Adequate
[2016-03-06 06:02] LABS: Calcium 8.2 MG/DL (8.5-10.1); Osmolality,Calculated 282.1 MOS/KG (273-304); Potassium 4.2 MMOL/L (3.5-5.1)
[2016-03-06] MEDS ORDERED: HEPARIN LOCK FLUSH 500 UNIT/5 ML SYRINGE IV ONE (08:54)
[2016-03-06] MEDS: diphenhydrAMINE 50 MG/1 ML VIAL IV PRN ×3 (09:00→21:22)
[2016-03-06] MEDS: DOCUSATE/SENNA 50-8.6 MG TABLET PO SCH (09:04)
[2016-03-06] MEDS: DEFERASIROX PO SCH (09:04)
--- NOTE | 2016-03-06 11:24 | Gastrointestinal Consult Note ---
<Willa Muniz - Last Filed: 03/06/16 11:18> Assessment and Plan (1) Nausea Status: Acute Assessment and plan: 03/06-Several day history of nausea w/o abd pain. Vomiting x 1. Able to sustain nutrition at present. Nausea improved today. Plan and addendum to follow by Dr Lawson. Current Visit: Yes History of Present Illness Chief complaint: Nausea History of present illness: Ms. Victor Hugo Satck is a 30 year old female who was admitted to the hospital on with sickle cell crisis. Pt has multiple hospitalizations for her sickle cell disease however states that days prior to coming in she was having pain she was trying to manage at home. She was treated two weeks ago in the ER with Rocephin and a Z-heidi for upper respiratory symptoms and sent home. She states shortly after this she developed some vague nausea. States it would occur off and on during the day however she had no vomiting with this. She had no reports of abdominal pain. She presented to our ER and was admitted for pain control and transfusion with her hemoglobin of 7.4. She states since admission she has had continued waves of nausea however it has not kept her from eating and drinking. States she only had one episode of vomiting a couple of days ago, denying any coffee ground or hematemesis. States her nausea is improved now and she is feeling much better. She had an EGD x 2 in 2005 for nausea and upper abdominal pain with normal findings at that time. She is noted to take several narcotics at home for her pain control. She denies any melena or hematochezia. Denies any fever, chills or weight loss. Denies any GERD, dysphagia. Current hemoglobin is 7.1. Prior cholecystectomy in 2005, no report of gallstones. Home Medications Medication Instructions Recorded Confirmed Type Folic Acid Tab 1 mg PO DAILY tablet 05/25/14 02/27/16 Rx HYDROmorphone TAB [Dilaudid Tab] 4 mg PO Q4H PRN 09/03/14 02/27/16 History Morphine ER Tab [Ms Contin] 30 mg PO Q12H PRN 12/03/14 02/27/16 History Morphine Ir Tab [Morphine IR Tab] 15 mg PO Q4HR PRN 12/03/14 02/27/16 History Deferasirox [Jadenu] 4 tablet PO DAILY 04/26/15 02/27/16 History Hydroxyurea [Hydrea] 2 tablet PO DAILY 04/26/15 02/27/16 History Rivaroxaban [Xarelto] 20 mg PO DAILY W/SUPPER tablet 10/16/15 02/27/16 Rx Allergies Allergy/AdvReac Type Severity Reaction Status Date / Time plastic tape Allergy ITCHING Uncoded 10/09/15 21:05 Medical,Surgical,& Family Hx - Medical History Psychological: History of: Anxiety Disorders HEENT: History of: HEENT Problems (nose bleed) Respiratory: History of: Bronchitis, Pneumonia Hematology: History of: Anemia, Sickle Cell Disease, Blood Disorders - Surgical History Thoracic Surgeries: Patient denies;: Organ Transplant, Lobectomy Neurologic Surgeries: Patient denies: Neurologic Surgery HEENT Surgeries: Surgical HX of: Tonsilectomy & Adenoidectomy (1993) Abdominal Surgeries: Surgical HX of: Appendectomy, Cholecystectomy (2005) Reproductive Surgeries: Patient denies;: Genitourinary Surgery Orthopedic Surgeries: Surgical HX of;: Orthopedic Surgery (left sholder replacement in 2008), Total Hip Replacement (2007) - Family History Family History: Reports;: Family Hypertension (grandmother) Denies;: Family Diabetes Comment Only: Family Cancer (grandfather had mouth cancer) - Social History Smoking Status: Never smoker Frequency of Alcohol Use: None Type of Drug Use: None 12 point system: reviewed and no additional remarkable complaints except as stated - Constitutional Constitutional: Present: as per HPI - EENT Eyes: Present: as per HPI Ears: Present: as per HPI Nose, mouth and throat: Present: as per HPI - Cardiovascular Cardiovascular: Present: as per HPI - Respiratory Respiratory: Present: as per HPI - Gastrointestinal Gastrointestinal: Present: as per HPI, nausea - Genitourinary Genitourinary: Present: as per HPI - Musculoskeletal Musculoskeletal: Present: as per HPI - Neurological Neurological: Present: as per HPI - Psychiatric Psychiatric: Present: as per HPI - Endocrine Endocrine: Present: as per HPI - Hematologic/Lymphatic Hematologic/Lymphatic: Present: as per HPI Exam - Constitutional Vitals: Period Temp Pulse Resp BP Sys/Whaley Pulse Ox Last 24 Hr 97.1 F-98.2 F 71-84 18-20 89-98/48-52 95-100 General appearance: normal weight, no acute distress - Head Head exam: Present: normal inspection, normocephalic - Eye Eye exam: Present: other (lids and conjunctiva unremarkable). Absent: scleral icterus - ENT ENT exam: Present: normal exam, normal oropharynx - Neck Neck exam: Present: normal inspection - Respiratory Respiratory exam: Present: clear to auscultation bilaterally. Absent: rales, rhonchi, wheezes - Cardiovascular Cardiovascular exam: Present: regular rate and rhythm. Absent: diastolic murmur , JVD, systolic murmur - GI/Abdominal GI/Abdominal exam: Present: normal bowel sounds, soft. Absent: ascites, distended, mass, organomegaly, tenderness - Extremities Exam Extremities exam: Present: normal inspection, full ROM - Back Exam Back exam: Present: normal inspection - Neurological Exam Neurological exam: Present: alert, oriented X3 - Psychiatric Psychiatric exam: Present: normal affect, normal mood - Skin Skin exam: Present: normal color, warm, dry Results - Labs CBC & BMP: 03/06/16 04:00 03/06/16 04:00 Lab Results: I have reviewed the past 24 hour labs <Arsenio Lawson - Last Filed: 03/06/16 19:37> History of Present Illness History of present illness: Ms. Victor Hugo Stack is a 30 year old female Exam - Constitutional Vitals: Period Temp Pulse Resp BP Sys/Whaley Pulse Ox Last 24 Hr 97.1 F-97.6 F 71-86 18-20 90-105/48-63 95-98 Results - Labs CBC & BMP: 03/06/16 04:00 03/06/16 04:00
[2016-03-06] MEDS: MORPHINE ER 30 MG TABLET PO PRN (15:21)
[2016-03-06] MEDS: ONDANSETRON 4 MG/2 ML VIAL IV PRN (17:05)
[2016-03-06] MEDS: PANTOPRAZOLE 40 MG TABLET PO SCH (17:08)
[2016-03-06] MEDS: RIVAROXABAN 20 MG TABLET PO SCH (17:09)
[2016-03-06] MEDS: FOLIC ACID 1 MG TABLET PO SCH (17:09)
[2016-03-06] MEDS: HYDROXYUREA 500 MG CAPSULE PO SCH (17:09)
[2016-03-06] MEDS ORDERED: SODIUM CHLORIDE 0.9% 250 ML IV PRN (17:42)
--- NOTE | 2016-03-06 17:42 | Hospitalist Progress Note ---
Assessment and Plan (1) Sickle-cell disease with pain Status: Acute Assessment and plan: slowly improving continue current regime, retic count, cbc in am Current Visit: Yes (2) Sickle cell anemia Status: Chronic Assessment and plan: will give 1unit of packed cells, cbc in am Current Visit: No (3) Nausea & vomiting Status: Acute Assessment and plan: appreciates GI's input, follow recommendations Current Visit: Yes Hospitalist: Subjective Interval history: patient seen. She states pain is improving Exam - Constitutional Vitals: Period Temp Pulse Resp BP Sys/Whaley Pulse Ox Last 24 Hr 97.1 F-97.6 F 71-86 18-20 89-105/48-63 95-100 General appearance: no acute distress - Head Head exam: Present: normal inspection - Respiratory Respiratory exam: Present: clear to auscultation bilaterally - Cardiovascular Cardiovascular exam: Present: regular rate and rhythm - GI/Abdominal GI/Abdominal exam: Present: normal bowel sounds - Extremities Exam Extremities exam: Present: normal inspection Results - Labs CBC & BMP: 03/06/16 04:00 03/06/16 04:00 Lab Results: I have reviewed the past 24 hour labs
[2016-03-07] MEDS: HYDROmorphone 2 MG/1 ML VIAL IV PRN ×5 (03:15→19:45)
[2016-03-07] MEDS: diphenhydrAMINE 50 MG/1 ML VIAL IV PRN ×4 (03:21→19:46)
[2016-03-07 05:58] LABS: Basophils # 0.1 10*3/uL (0.0-0.2); Basophils % 0.5 % (0.0-0.8); Eosinophils # 0.8 10*3/uL (0.0-0.87); Eosinophils % 7.9 % (0.00-10.9); Hematocrit 21.5 VOL% (35.7-47.0); Hemoglobin 7.4 GM/DL (12.0-16.0); Immature Granulocytes % 0.2 %; Immature Granulocytes Absolute 0.02 #; Lymphocytes # 3.3 10*3/uL (1.4-4.0); Lymphocytes % 33.7 % (21.3-54.2); Mean Corpuscular HGB Conc 34.4 GM/DL (32-36); Mean Corpuscular Hemoglobin 32 PG (27-34); Mean Corpuscular Volume 91.9 FL (87-102); Mean Platelet Volume 11.6 FL (9.6-12.0); NRBC # 0.09 10*3/uL; Neutrophils # 4.6 10*3/uL (1.4-7.4); Neutrophils % 47.7 % (38.7-73.9); Platelet Count 233 10*3/uL (130-400); Red Blood Count 2.34 10*6/uL (3.8-5.5); White Blood Count 9.7 10*3/uL (4.5-13.71)
[2016-03-07 07:06] LABS: Calcium 8.7 MG/DL (8.5-10.1); Osmolality,Calculated 282.1 MOS/KG (273-304); Potassium 4.6 MMOL/L (3.5-5.1)
[2016-03-07] MEDS: ONDANSETRON 4 MG/2 ML VIAL IV PRN ×3 (08:21→19:45)
[2016-03-07] MEDS: DOCUSATE/SENNA 50-8.6 MG TABLET PO SCH (08:44)
[2016-03-07] MEDS: DEFERASIROX PO SCH (08:44)
[2016-03-07] MEDS ORDERED: HYDROmorphone 2 MG/1 ML VIAL IV ONE (10:39)
--- NOTE | 2016-03-07 10:45 | Hospitalist Progress Note ---
<Joanie Rose - Last Filed: 03/07/16 10:43> Assessment and Plan - Time spent with patient Time spent with patient: Less than 30 minutes (due to assessment, plan and doc) (1) Acute pain Status: Acute Current Visit: Yes (2) Sickle cell pain crisis Status: Acute Assessment and plan: no splenic sequestration or acute chest syndrome. Current Visit: Yes Hospitalist: Subjective Interval history: ms. velasquez was seen this morning on rounds lying in bed. she is complaining of increased pain to her bilateral knees and lower back. her dilaudid was decreased to 0.25 mg q4 hrs prn. i will give her a 1 mg one time dose. she states that she is ready to go home, but that she needs something to help her get over this hump. lungs clear, no abdominal pain. labs in am. Exam - Constitutional Vitals: Period Temp Pulse Resp BP Sys/Whaley Pulse Ox Last 24 Hr 97.3 F-98.0 F 75-86 18-20 91-111/51-64 94-96 General appearance: normal weight, no acute distress - Head Head exam: Present: normal inspection, normocephalic - Eye Eye exam: Present: EOMI. Absent: scleral icterus Pupils: Present: XENIA, normal accommodation - ENT ENT exam: Present: normal exam, normal oropharynx - Neck Neck exam: Present: normal inspection. Absent: lymphadenopathy - Respiratory Respiratory exam: Present: clear to auscultation bilaterally. Absent: accessory muscle use - Cardiovascular Cardiovascular exam: Present: regular rate and rhythm - GI/Abdominal GI/Abdominal exam: Present: normal bowel sounds, soft. Absent: tenderness - Extremities Exam Extremities exam: Present: normal inspection. Absent: edema - Back Exam Back exam: Present: normal inspection. Absent: muscle spasm - Neurological Exam Neurological exam: Present: alert, oriented X3 - Psychiatric Psychiatric exam: Present: normal affect, normal mood - Skin Skin exam: Present: normal color, warm, dry, intact Results - Labs CBC & BMP: 03/07/16 05:00 03/07/16 05:00 Lab Results: I have reviewed the past 24 hour labs <Mayra Haque - Last Filed: 03/07/16 15:00> Assessment and Plan (1) Sickle-cell disease with pain Status: Acute Current Visit: Yes (2) Sickle cell anemia Status: Chronic Current Visit: No (3) Nausea & vomiting Status: Acute Current Visit: Yes Hospitalist: Subjective Interval history: We will give another unit of packed cells. Exam - Constitutional Vitals: Period Temp Pulse Resp BP Sys/Whaley Pulse Ox Last 24 Hr 97.3 F-98.0 F 75-88 18-20 91-111/51-65 94-96 Results - Labs CBC & BMP: 03/07/16 05:00 03/07/16 05:00
[2016-03-07] MEDS ORDERED: HEPARIN LOCK FLUSH 500 UNIT/5 ML SYRINGE IV ONE (10:47)
[2016-03-07] MEDS: MORPHINE ER 30 MG TABLET PO PRN (11:05)
--- NOTE | 2016-03-07 11:24 | Event Note ---
Chief complaint nausea and vomiting. Symptoms have largely abated. She is having no further complaints of pain. She presented being transfuse additional 2 units of blood cells today. At this point she is eating well and will continue to observe for evidence of any active symptoms. We'll hold on endoscopic evaluation at this time. Review of systems she denies any shortness breath or chest pain On exam vital signs are stable she is alert and oriented 3 lids conjunctiva was unremarkable pharynx is benign Final JVD no thyromegaly lungs clear to auscultation. Stricture at heart regular rhythm no murmur abdomen soft nondistended nontender no masses no past family bowel sounds normoactive extremity no clubbing cyanosis or edema. Recommendations: Treat symptomatically with antiemetics as needed if symptoms worsen or recur consider EGD but at this point I suspect most of her symptoms have been related to her sickle cell crisis and we'll not plan any endoscopic evaluation at this time. She understands to call if symptoms recur. I will sign off call if I can be of further assistance.
[2016-03-07] MEDS ORDERED: SODIUM CHLORIDE 0.9% 250 ML IV PRN (15:00)
[2016-03-07] MEDS: FOLIC ACID 1 MG TABLET PO SCH (16:59)
[2016-03-07] MEDS: HYDROXYUREA 500 MG CAPSULE PO SCH (16:59)
[2016-03-07] MEDS: RIVAROXABAN 20 MG TABLET PO SCH (17:00)
[2016-03-07] MEDS: PANTOPRAZOLE 40 MG TABLET PO SCH (17:00)
[2016-03-07] MEDS ORDERED: METOCLOPRAMIDE 5 MG TABLET PO PRN (22:06)
[2016-03-08] MEDS: HYDROmorphone 2 MG/1 ML VIAL IV PRN ×6 (00:20→21:06)
[2016-03-08] MEDS: diphenhydrAMINE 50 MG/1 ML VIAL IV PRN ×4 (01:21→23:03)
[2016-03-08] MEDS: ONDANSETRON 4 MG/2 ML VIAL IV PRN (01:22)
[2016-03-08 04:37] LABS: Basophils # 0.1 10*3/uL (0.0-0.2); Basophils % 0.6 % (0.0-0.8); Eosinophils # 0.9 10*3/uL (0.0-0.87); Eosinophils % 6.8 % (0.00-10.9); Hematocrit 25.8 VOL% (35.7-47.0); Hemoglobin 8.8 GM/DL (12.0-16.0); Immature Granulocytes % 0.3 %; Immature Granulocytes Absolute 0.04 #; Lymphocytes # 5.9 10*3/uL (1.4-4.0); Lymphocytes % 45.1 % (21.3-54.2); Mean Corpuscular HGB Conc 34.1 GM/DL (32-36); Mean Corpuscular Hemoglobin 32 PG (27-34); Mean Corpuscular Volume 92.8 FL (87-102); Mean Platelet Volume 10.9 FL (9.6-12.0); Monocytes % 7.7 % (1.7-12.7); NRBC # 0.09 10*3/uL; Neutrophils # 5.1 10*3/uL (1.4-7.4); Neutrophils % 39.5 % (38.7-73.9); Platelet Count 256 10*3/uL (130-400); Red Blood Count 2.78 10*6/uL (3.8-5.5); Red Cell Distribution Width 16.7 % (9.3-17.3)
--- NOTE | 2016-03-08 08:45 | Hospitalist Progress Note ---
Assessment and Plan - Time spent with patient Time spent with patient: Less than 30 minutes (due to assessment, plan and doc) (1) Acute pain Status: Acute Current Visit: Yes (2) Sickle cell pain crisis Status: Acute Assessment and plan: no splenic sequestration or acute chest syndrome. Current Visit: Yes Hospitalist: Subjective Interval history: Ms. Gay was seen today on rounds sitting in bed about to eat breakfast. She thinks that she would benefit from some IVF's. Her H/h has improved to 8/25 with a retic still at 6.5 today. She states that she is still having some pain and requiring meds, but improved. I will start some IVF's and see how she does. She thinks she will be ready for discharge home tomorrow. Will continue to monitor her counts. Exam - Constitutional Vitals: Period Temp Pulse Resp BP Sys/Whaley Pulse Ox Last 24 Hr 96.7 F-98.6 F 81-98 15-20 81-118/37-71 93-97 General appearance: normal weight, no acute distress - Head Head exam: Present: normal inspection, normocephalic - Eye Eye exam: Present: EOMI. Absent: scleral icterus Pupils: Present: XENIA, normal accommodation - ENT ENT exam: Present: normal exam, normal oropharynx - Neck Neck exam: Present: normal inspection. Absent: lymphadenopathy - Respiratory Respiratory exam: Present: clear to auscultation bilaterally. Absent: accessory muscle use - Cardiovascular Cardiovascular exam: Present: regular rate and rhythm - GI/Abdominal GI/Abdominal exam: Present: normal bowel sounds, soft. Absent: tenderness - Extremities Exam Extremities exam: Present: normal inspection. Absent: edema - Back Exam Back exam: Present: normal inspection. Absent: muscle spasm - Neurological Exam Neurological exam: Present: alert, oriented X3 - Psychiatric Psychiatric exam: Present: normal affect, normal mood - Skin Skin exam: Present: normal color, warm, dry, intact Results - Labs CBC & BMP: 03/08/16 04:20 03/07/16 05:00 Lab Results: I have reviewed the past 24 hour labs
[2016-03-08] MEDS: SODIUM CHLORIDE 0.9% 1,000 ML IV SCH ×2 (11:17→21:07)
[2016-03-08] MEDS: PANTOPRAZOLE 40 MG TABLET PO SCH (16:29)
[2016-03-08] MEDS: DOCUSATE/SENNA 50-8.6 MG TABLET PO SCH (16:29)
[2016-03-08] MEDS: HYDROXYUREA 500 MG CAPSULE PO SCH (16:29)
[2016-03-08] MEDS: RIVAROXABAN 20 MG TABLET PO SCH (16:30)
[2016-03-08] MEDS: FOLIC ACID 1 MG TABLET PO SCH (16:30)
[2016-03-08] MEDS: DEFERASIROX PO SCH (16:32)
[2016-03-09] MEDS: HYDROmorphone 2 MG/1 ML VIAL IV PRN ×6 (01:12→22:10)
[2016-03-09] MEDS: diphenhydrAMINE 50 MG/1 ML VIAL IV PRN ×4 (04:47→22:09)
[2016-03-09 05:24] LABS: Basophils # 0.1 10*3/uL (0.0-0.2); Basophils % 0.6 % (0.0-0.8); Eosinophils # 1.1 10*3/uL (0.0-0.87); Eosinophils % 9.1 % (0.00-10.9); Hematocrit 26.5 VOL% (35.7-47.0); Immature Granulocytes % 0.2 %; Immature Granulocytes Absolute 0.02 #; Lymphocytes # 5.5 10*3/uL (1.4-4.0); Lymphocytes % 47.3 % (21.3-54.2); Mean Corpuscular Hemoglobin 31 PG (27-34); Mean Corpuscular Volume 90.1 FL (87-102); Mean Platelet Volume 11.1 FL (9.6-12.0); Monocytes % 8.5 % (1.7-12.7); NRBC # 0.08 10*3/uL; Neutrophils % 34.3 % (38.7-73.9); Platelet Count 263 10*3/uL (130-400); Red Blood Count 2.94 10*6/uL (3.8-5.5); Red Cell Distribution Width 17.8 % (9.3-17.3); White Blood Count 11.7 10*3/uL (4.5-13.71)
[2016-03-09 06:30] LABS: Eosinophils 12 % (0-10); Lymphocytes 46 % (20-55); Nucleated Red Blood Cells 1 (0-5); Segmented Neutrophils 39 % (50-85); Total Cells Counted 100
[2016-03-09 06:31] LABS: Hypochromasia 1+; Macrocytosis 1+; Pappenheimer Bodies Slight; Target Cells Few
[2016-03-09 06:32] LABS: Ovalocytes Slight
[2016-03-09 06:33] LABS: Platelet Estimate Adequate; Sickle Cells Slight
[2016-03-09] MEDS ORDERED: guaiFENesin 200 MG/10 ML UDCUP PO PRN (12:10)
--- NOTE | 2016-03-09 12:12 | Hospitalist Progress Note ---
Assessment and Plan (1) Sickle-cell disease with pain Status: Acute Assessment and plan: improving continue current regime, retic count, cbc in am Current Visit: Yes (2) Sickle cell anemia Status: Chronic Assessment and plan: s/p transfusion, cbc in am Current Visit: No (3) Nausea & vomiting Status: Acute Assessment and plan: appreciates GI's input, follow recommendations Current Visit: Yes (4) Cough Status: Acute Assessment and plan: will get a CXR -robitussin prn -reduce IVF -sputum gram stain Current Visit: Yes Hospitalist: Subjective Interval history: Patient complains of cough productive of brownish sputum Exam - Constitutional Vitals: Period Temp Pulse Resp BP Sys/Whaley Pulse Ox Last 24 Hr 97.3 F-98.6 F 62-92 16-20 91-110/52-68 96-99 General appearance: no acute distress - Head Head exam: Present: normal inspection - Respiratory Respiratory exam: Present: clear to auscultation bilaterally - Cardiovascular Cardiovascular exam: Present: regular rate and rhythm - GI/Abdominal GI/Abdominal exam: Present: normal bowel sounds - Extremities Exam Extremities exam: Present: normal inspection Results - Labs CBC & BMP: 03/09/16 04:00 03/07/16 05:00 Lab Results: I have reviewed the past 24 hour labs
--- NOTE | 2016-03-09 12:44 | XRay Report ---
XR chest 2V Indication: Of cough. Sputum. Chest 2 views: Comparison 02/26/16. Mediport catheter, normal heart size and mediastinal contour and a few scattered calcified granulomata are stable. No new infiltrates are shown. There is diffuse mild parabronchial thickening present. Pleural spaces are clear. Impression: Parabronchial thickening noted diffusely, likely airways disease. Spear superimposed on chronic lung changes. Is the patient sickle cell? PROCEDURE INTERPRETED AT [facility] DEPARTMENT OF RADIOLOGY Final Report Signed by: Jeff Medina M.D.
[2016-03-09] MEDS: FOLIC ACID 1 MG TABLET PO SCH (16:03)
[2016-03-09] MEDS: HYDROXYUREA 500 MG CAPSULE PO SCH (16:03)
[2016-03-09] MEDS: PANTOPRAZOLE 40 MG TABLET PO SCH (16:04)
[2016-03-09] MEDS: RIVAROXABAN 20 MG TABLET PO SCH (16:04)
[2016-03-09] MEDS: SODIUM CHLORIDE 0.9% 1,000 ML IV SCH (16:07)
[2016-03-09] MEDS: DEFERASIROX PO SCH (16:07)
[2016-03-09] MEDS: DOCUSATE/SENNA 50-8.6 MG TABLET PO SCH (16:10)
[2016-03-10] MEDS: SODIUM CHLORIDE 0.9% 1,000 ML IV SCH ×2 (00:45→02:21)
[2016-03-10] MEDS: HYDROmorphone 2 MG/1 ML VIAL IV PRN ×3 (02:19→10:08)
[2016-03-10 05:21] LABS: Basophils # 0.1 10*3/uL (0.0-0.2); Basophils % 0.8 % (0.0-0.8); Eosinophils # 1.1 10*3/uL (0.0-0.87); Eosinophils % 11.1 % (0.00-10.9); Hematocrit 27.4 VOL% (35.7-47.0); Hemoglobin 9.1 GM/DL (12.0-16.0); Immature Granulocytes % 0.3 %; Immature Granulocytes Absolute 0.03 #; Lymphocytes # 4.6 10*3/uL (1.4-4.0); Lymphocytes % 46.9 % (21.3-54.2); Mean Corpuscular HGB Conc 33.2 GM/DL (32-36); Mean Corpuscular Hemoglobin 31 PG (27-34); Mean Corpuscular Volume 92.6 FL (87-102); Mean Platelet Volume 10.4 FL (9.6-12.0); Monocytes # 0.8 10*3/uL (0.11-0.8); Monocytes % 7.8 % (1.7-12.7); NRBC # 0.11 10*3/uL; Neutrophils # 3.3 10*3/uL (1.4-7.4); Neutrophils % 33.1 % (38.7-73.9); Platelet Count 267 10*3/uL (130-400); Red Blood Count 2.96 10*6/uL (3.8-5.5); Red Cell Distribution Width 17.8 % (9.3-17.3); White Blood Count 9.9 10*3/uL (4.5-13.71)
[2016-03-10 05:47] LABS: Eosinophils 18 % (0-10); Hypochromasia 1+; Lymphocytes 38 % (20-55); Nucleated Red Blood Cells 3 (0-5); Segmented Neutrophils 38 % (50-85); Total Cells Counted 100
[2016-03-10 05:48] LABS: Macrocytosis 1+; Ovalocytes Few; Target Cells Few
[2016-03-10 05:49] LABS: Pappenheimer Bodies Slight; Sickle Cells Slight
[2016-03-10 05:50] LABS: Platelet Estimate Adequate
[2016-03-10] MEDS: diphenhydrAMINE 50 MG/1 ML VIAL IV PRN ×2 (06:23→12:12)
--- NOTE | 2016-03-10 11:15 | Discharge Summary ---
Hospital Course - Hospital Course Hospital Course: History of present illness: Ms. Victor Hugo Stack is a 30 year old female with past medical history sickle cell disease, avascular necrosis well-known to our service, presents the ER with pain. Patient states that she's been hurting for several days. She was seen previously in the ER and got some Rocephin and a Z-[place]. Patient felt like she having some facial swelling although is mild and having her usual pain crisis. Patient reports she hurts all over. Patient's had nausea and headache 1 day. She's been trying to take her by mouth medications but has not been having good results. She was admitted, started on IVF, IV pain meds,she was transfused with packed cells,she developed nausea, vomiting and abd pain. Gall bladder USS showed post cholecystectomy, GI saw in consultation, She had an EGD x 2 in 2005 for nausea and upper abdominal pain with normal findings at that time.She was treated symptomatically with antiemetics and didnt require any additonal EGD. She complained of cough, CXR showed parabronchial thickening, airway disease.Her symptoms improved, vitals remain stable. This am, she feels great, ready to be dcd. - Time spent with patient Time with patient DS: Greater than 30 minutes Diagnosis - Discharge Diagnosis (1) Sickle-cell disease with pain Status: Acute (2) Sickle cell anemia Status: Chronic (3) Nausea & vomiting Status: Acute (4) Cough Status: Acute Discharge Plan - Discharge Data Disposition: Disch To Home/Self Care Condition at Discharge: Stable Discharge Diet: advance to your usual diet Activity: resume usual activities as tolerated - Discharge Medications New Docusate/Senna 50-8.6 [Senokot S] 1 tablet PO DAILY tablet Metoclopramide Tab [Reglan Tab] 5 mg PO Q6H PRN #20 tablet PRN Reason: Nausea/Vomiting Pantoprazole Tab [Protonix Tab] 40 mg PO 1700 #30 tablet guaiFENesin LIQUID [Robitussin] 10 ml PO Q4H PRN #20 udcup PRN Reason: Cough Continue Folic Acid Tab 1 mg PO DAILY tablet Morphine ER Tab [Ms Contin] 30 mg PO Q12H PRN PRN Reason: Pain Hydroxyurea [Hydrea] 2 tablet PO DAILY Deferasirox [Jadenu] 4 tablet PO DAILY Rivaroxaban [Xarelto] 20 mg PO DAILY W/SUPPER tablet Morphine Ir Tab [Morphine IR Tab] 15 mg PO Q4HR PRN #20 tablet PRN Reason: Pain HYDROmorphone TAB [Dilaudid Tab] 4 mg PO Q4H PRN #20 tablet PRN Reason: Pain Moderate (4-7) - Follow Up or Referral - Forms/Instructions Additional Discharge Instructions: follow with PCP in 1week Exam - Constitutional Vitals: Period Temp Pulse Resp BP Sys/Whaley Pulse Ox Last 24 Hr 97.2 F-98.7 F 65-80 16-20 87-113/50-68 93-99 General appearance: no acute distress - Head Head exam: Present: normal inspection - Respiratory Respiratory exam: Present: clear to auscultation bilaterally - Cardiovascular Cardiovascular exam: Present: regular rate and rhythm - GI/Abdominal GI/Abdominal exam: Present: normal bowel sounds - Extremities Exam Extremities exam: Present: normal inspection - Back Exam Back exam: Present: normal inspection Discharge Results Labs on day of discharge: Labs from last 24 hours 03/10/16 03/10/16 04:00 04:00 WBC 9.9 RBC 2.96 L Hgb 9.1 L Hct 27.4 L MCV 92.6 MCH 31 MCHC 33.2 RDW 17.8 H Plt Count 267 MPV 10.4 Neut % (Auto) 33.1 L Lymph % (Auto) 46.9 Esmeralda % (Auto) 7.8 Eos % (Auto) 11.1 H Baso % (Auto) 0.8 Neut # (Auto) 3.3 Lymph # (Auto) 4.6 H Esmeralda # (Auto) 0.8 Eos # (Auto) 1.1 H Baso # (Auto) 0.1 Total Counted 100 Immature Gran % 0.3 Nucleated RBC % 1.1 Immature Gran # 0.03 Segmented Neutrophils 38 L Lymphocytes 38 Monocytes 5 Eosinophils 18 H Basophils 1.0 H Nucleated RBCs 3 Nucleated RBCs # 0.11 Platelet Estimate Adequate Hypochromasia 1+ Macrocytosis 1+ Pappenheimer Bodies Slight Sickle Cells Slight Target Cells Few Ovalocytes Few Morphology Comment Absolute Retic 0.1 Percent Retic 4.8 H Retic Hgb Equivalent 34.6 DS: Provider Date of admission: 02/27/16 01:29 Primary care physician: . No PCP Attending physician on admission: Deborah Yeung MD Consults: 03/05/16 17:25 Consult to Physician [CONS] Routine Comment: In [employer] Dr. Lawson. Consulting Provider: Arsenio Lawson Consulting Provider Notified: Yes When should Consulting Provider be notified: Now Consult to Specialist Group: Gastroenterology When should Consulting Provider be notified: Now Person Notified: JUAN C Date Notified: 03/06/16 Time Notified: 09:01 Consult Notification Comment: sickle cell disease pt 30 yr female, w recurrent N/V w advancing diet and abnormal LFTs. Discharging clinician: Mayra Haque MD
[2016-03-10] MEDS ORDERED: HEPARIN LOCK FLUSH 500 UNIT/5 ML SYRINGE IV ONE (11:42)
[2016-03-10 12:08] VITALS: BP 99/58
== END 2016-03-10 13:30 | disposition home or self-care (01) | DRG 812 ==
LOC: N.ED 22:39 → N.EDINP 02-27 01:28 → SUATTDRO 02-27 01:29 → N.4E 02-27 02:18
PROVIDERS: ADMIT Internal Medicine; ATTEND Internal Medicine

== ENCOUNTER 2016-06-26 22:15 | Inpatient (IN) ==
[2016-06-26] MEDS ORDERED: HYDROmorphone 2 MG/1 ML VIAL IV STA (22:36)
[2016-06-26] MEDS ORDERED: SODIUM CHLORIDE 0.9% 1,000 ML IV STA (22:36)
[2016-06-26] MEDS ORDERED: ONDANSETRON 4 MG/2 ML VIAL IV STA (22:36)
[2016-06-26] MEDS ORDERED: HYDROmorphone 2 MG/1 ML VIAL ONE (23:36)
[2016-06-26] MEDS ORDERED: ONDANSETRON 4 MG/2 ML VIAL ONE (23:36)
--- NOTE | 2016-06-26 23:49 | Emergency Department Note ---
Kam Johns Hilary, am scribing for, and in the presence of, Sung Fregoso MD 22:42. Ildefonso Johns Robert M, MD, personally performed the services described in this documentation, ascribed by Sailaja Humphrye in my presence, and it is both accurate and complete [id number] . Arrival - Arrival Chief Complaint: Sickle Cell Stated Complaint: SICKLE CELL CRISIS ED Nursing Triage Note: pt is having sickle cell pain for last 4 days and went to sickle cell clinic in [place] today and received fluids and had lab work done. pt states she isnt any better Mode of Arrival: Ambulatory Limitations: No Limitations Source: Patient, RN Notes Reviewed Time Seen by Provider: 06/26/16 22:34 - History of Present Illness HPI Narrative: Pt is a 31 y/o black female presenting to the ED with c/o pain due to Sickle cell which onset 4 days ago. Pt states that went to sickle cell clinic in [place] today and received fluids and had lab work done, but doesn't feel any better. She confirms a cough with green phlegm, pain in her knees, lower back and chest but denies fever or dysuria. Pt reports that she doesn't usually take her pain medication but has had to the past few days. Onset (ago): day(s) Consistency: constant Severity: moderate Severity scale (1-10): 3 Date of Last Menstrual Period: depo Allergies/Adverse Reactions: Allergies Allergy/AdvReac Type Severity Reaction Status Date / Time plastic tape Allergy ITCHING Uncoded 06/15/16 17:11 Home Medications: Home Medications Medication Instructions Recorded Confirmed Type Folic Acid Tab 1 mg PO DAILY tablet 05/25/14 06/04/16 Rx Morphine ER Tab [Ms Contin] 30 mg PO Q12H PRN 12/03/14 06/04/16 History Hydroxyurea [Hydrea] 1,000 mg PO DAILY 04/26/15 06/04/16 History Rivaroxaban [Xarelto] 20 mg PO DAILY W/SUPPER tablet 10/16/15 06/04/16 Rx HYDROmorphone TAB [Dilaudid Tab] 4 mg PO Q4H PRN #20 tablet 03/10/16 06/04/16 Rx Morphine Ir Tab [Morphine IR Tab] 15 mg PO Q4HR PRN #20 tablet 03/10/16 Rx Deferasirox [Jadenu] 4 tablet PO DAILY 04/15/16 06/04/16 Rx Norethindrone 0.35 mg PO DAILY 06/04/16 06/04/16 History HYDROcodone/ACETAMIN 10-325 [Merlin 1 tablet PO Q6H #14 tablet 06/27/16 Rx 10-325] Ondansetron Odt Tab [Zofran Odt] 4 mg PO Q6H #15 tablet 06/27/16 Rx Review of System - Review of System 12 point system: reviewed and no additional remarkable complaints except as stated - Review of System Constitutional: Absent: fever Respiratory: Present: cough Cardiovascular: Present: chest pain (chest wall pain) Gastrointestinal: Absent: abdominal pain Genitourinary female: Absent: dysuria Musculoskeletal: Present: lower back pain, leg pain (knee pain) Medical,Surgical,& Family Hx - Medical History Psychological: History of: Anxiety Disorders HEENT: History of: HEENT Problems (nose bleed) Respiratory: History of: Bronchitis, Pneumonia Hematology: History of: Anemia, Blood Transfusion Reaction (2014), Sickle Cell Disease, Blood Disorders - Surgical History Thoracic Surgeries: Patient denies;: Organ Transplant, Lobectomy Neurologic Surgeries: Patient denies: Neurologic Surgery HEENT Surgeries: Surgical HX of: Tonsilectomy & Adenoidectomy (1993) Abdominal Surgeries: Surgical HX of: Appendectomy, Cholecystectomy (2005) Reproductive Surgeries: Patient denies;: Genitourinary Surgery Orthopedic Surgeries: Surgical HX of;: Orthopedic Surgery (left sholder replacement in 2008), Total Hip Replacement (2007) - Family History Family History: Reports;: Family Hypertension (grandmother) Denies;: Family Diabetes Comment Only: Family Cancer (grandfather had mouth cancer) - Social History Smoking Status: Never smoker Frequency of Alcohol Use: None Type of Drug Use: None Exam Vital Signs: Vital Signs Temperature 99.2 F 06/26/16 22:16 Pulse Rate 96 H 06/26/16 22:16 Respiratory Rate 20 06/26/16 22:16 Blood Pressure 100/72 06/26/16 22:16 O2 Sat by Pulse Oximetry 98 06/26/16 22:16 - General General appearance: alert, in distress (moderate distress) - Head Head exam: Present: atraumatic, normocephalic - Eye Eye exam: Present: normal appearance, PERRL, EOMI - ENT ENT exam: Present: mucous membranes moist, TM's normal bilaterally. Absent: mucous membranes dry - Neck Neck exam: Present: full ROM, trachea midline. Absent: tenderness - Chest Chest inspection: Present: symmetric chest wall rise. Absent: tenderness - Respiratory Respiratory exam: Present: normal lung sounds bilaterally. Absent: respiratory distress - Cardiovascular Cardiovascular exam: Present: regular rate, normal rhythm, normal heart sounds. Absent: murmur, rubs, gallop - Abdominal Exam Abdominal exam: Present: soft, normal bowel sounds. Absent: distention, tenderness - Extremities Exam Extremities exam: Present: full ROM. Absent: tenderness - Back Exam Back exam: Present: full ROM. Absent: tenderness - Neurological Exam Neurological exam: Present: alert, oriented X3, CN II-XII intact. Absent: motor sensory deficit - Psychiatric Psychiatric exam: Present: normal affect, normal mood - Skin Skin exam: Present: warm, dry, intact, normal color. Absent: rash Course - Consultations Consultation #1: The hospitalist service will admit the patient. Time: 00:36 Results - Labs CBC & BMP: 06/26/16 23:49 06/26/16 23:49 Lab Results: I have reviewed the patients labs Labs: Lab Results WBC 15.0 T/CUMM (4-12) H 06/26/16 23:49 RBC 2.18 MC/CUMM (3.8-5.5) L 06/26/16 23:49 Hgb 7.6 GM/DL (12.0-16.0) L 06/26/16 23:49 Hct 21.2 VOL% (35.7-47.0) L 06/26/16 23:49 MCV 97.2 FL (87-102) 06/26/16 23:49 MCH 35 PG (27-34) H 06/26/16 23:49 MCHC 35.8 GM/DL (32-36) 06/26/16 23:49 RDW 18.8 % (9.3-17.3) H 06/26/16 23:49 Plt Count 320 T/CUMM (130-400) 06/26/16 23:49 MPV 10.5 FL (9.6-12.0) 06/26/16 23:49 Neut % (Auto) 40.9 % (38.7-73.9) 06/26/16 23:49 Lymph % (Auto) 42.8 % (21.3-54.2) 06/26/16 23:49 [place] % (Auto) 8.1 % (1.7-12.7) 06/26/16 23:49 Eos % (Auto) 7.4 % (0.00-10.9) 06/26/16 23:49 Baso % (Auto) 0.5 % (0.0-0.8) 06/26/16 23:49 Neut # (Auto) 6.1 10*3/uL (1.4-7.4) 06/26/16 23:49 Lymph # (Auto) 6.4 10*3/uL (1.4-4.0) H 06/26/16 23:49 [place] # (Auto) 1.2 10*3/uL (0.11-0.8) H 06/26/16 23:49 Eos # (Auto) 1.1 10*3/uL (0.0-0.87) H 06/26/16 23:49 Baso # (Auto) 0.1 10*3/uL (0.0-0.2) 06/26/16 23:49 Immature Gran % 0.3 % 06/26/16 23:49 Nucleated RBC % 2.9 /100WBC 06/26/16 23:49 Immature Gran # 0.04 # 06/26/16 23:49 Nucleated RBCs # 0.43 10*3/uL 06/26/16 23:49 Sodium 141 MMOL/L (136-145) 06/26/16 23:49 Potassium 4.4 MMOL/L (3.5-5.1) 06/26/16 23:49 Chloride 109 MMOL/L (98-107) H 06/26/16 23:49 Carbon Dioxide 23 MMOL/L (21-32) 06/26/16 23:49 Anion Gap 13.4 MMOL/L (5.0-15.0) 06/26/16 23:49 BUN 11 MG/DL (7-18) 06/26/16 23:49 Creatinine 0.60 MG/DL (0.55-1.02) 06/26/16 23:49 GFR Calculation 123 ML/MIN 06/26/16 23:49 BUN/Creatinine Ratio 18.00 RATIO (6.00-20.00) 06/26/16 23:49 Glucose 95 MG/DL (74-106) 06/26/16 23:49 Calculated Osmolality 279.3 MOS/KG (273-304) 06/26/16 23:49 Calcium 8.7 MG/DL (8.5-10.1) 06/26/16 23:49 Total Bilirubin 1.60 MG/DL (0.2-1.0) H 06/26/16 23:49 Direct Bilirubin 0.40 MG/DL (0.0-0.20) H 06/26/16 23:49 AST 101 U/L (0-37) H 06/26/16 23:49 ALT 73 U/L (13-56) H 06/26/16 23:49 Alkaline Phosphatase 92 U/L (45-117) 06/26/16 23:49 Lactate Dehydrogenase 463 U/L (84-246) H 06/26/16 23:49 Total Protein 7.7 G/DL (6.4-8.3) 06/26/16 23:49 Albumin 3.6 G/DL (3.4-5.0) 06/26/16 23:49 Globulin 4.1 G/DL (2.3-3.5) H 06/26/16 23:49 Albumin/Globulin Ratio 0.8 RATIO (1.1-2.2) L 06/26/16 23:49 Urine Color Yellow (Yellow) 06/26/16 23:49 Urine Appearance Clear (Clear) 06/26/16 23:49 Urine pH 7.0 (4.5-8.0) 06/26/16 23:49 Ur Specific [place] 1.009 (1.001-1.035) 06/26/16 23:49 Urine Protein 100 MG/DL 06/26/16 23:49 Urine Glucose (UA) Negative mg/dL (Negative) 06/26/16 23:49 Urine Ketones Negative mg/dL (Negative) 06/26/16 23:49 Urine Blood Small mg/dL (Negative) 06/26/16 23:49 Urine Nitrate Negative (Negative) 06/26/16 23:49 Urine Bilirubin Negative mg/dL (Negative) 06/26/16 23:49 Urine Urobilinogen 4.0 EU/DL (0.2-1.0) H 06/26/16 23:49 Urine Leukocytes Negative Anastasia/ul (Negative) 06/26/16 23:49 Urine RBC 2 /HPF (0-4) 06/26/16 23:49 Urine WBC 1 /HPF (0-6) 06/26/16 23:49 Ur Squamous Epith Cells Occasional /HPF (0-10) 06/26/16 23:49 Ur Culture Indicated? Not indicated 06/26/16 23:49 Disposition Clinical Impression: Sickle cell disease, Acute back pain, Bilateral knee pain Case discussed with: patient, patient's family Disposition: Still a Patient Condition: Stable Prescriptions: HYDROcodone/ACETAMIN 10-325 [Merlin 10-325] 1 tablet PO Q6H #14 tablet Ondansetron Odt Tab [Zofran Odt] 4 mg PO Q6H #15 tablet New Prescriptions: Rx's Medication Instructions Recorded HYDROcodone/ACETAMIN 10-325 [Merlin 1 tablet PO Q6H #14 tablet 06/27/16 10-325] Ondansetron Odt Tab [Zofran Odt] 4 mg PO Q6H #15 tablet 06/27/16 Time of Disposition: 00:24 Contact your physician if you experience:: fever over 101, Difficulty voiding, Redness or swelling, Nausea/Vomiting, Shortness of breath, Bleeding, pain uncontrolled by pain medications, Other
[2016-06-26 23:58] LABS: Basophils # 0.1 10*3/uL (0.0-0.2); Basophils % 0.5 % (0.0-0.8); Eosinophils # 1.1 10*3/uL (0.0-0.87); Eosinophils % 7.4 % (0.00-10.9); Hematocrit 21.2 VOL% (35.7-47.0); Hemoglobin 7.6 GM/DL (12.0-16.0); Immature Granulocytes % 0.3 %; Immature Granulocytes Absolute 0.04 #; Lymphocytes # 6.4 10*3/uL (1.4-4.0); Lymphocytes % 42.8 % (21.3-54.2); Mean Corpuscular HGB Conc 35.8 GM/DL (32-36); Mean Corpuscular Hemoglobin 35 PG (27-34); Mean Corpuscular Volume 97.2 FL (87-102); Mean Platelet Volume 10.5 FL (9.6-12.0); Monocytes # 1.2 10*3/uL (0.11-0.8); Monocytes % 8.1 % (1.7-12.7); NRBC # 0.43 10*3/uL; Neutrophils # 6.1 10*3/uL (1.4-7.4); Neutrophils % 40.9 % (38.7-73.9); Platelet Count 320 T/CUMM (130-400); Red Blood Count 2.18 MC/CUMM (3.8-5.5); Red Cell Distribution Width 18.8 % (9.3-17.3)
[2016-06-27 00:02] LABS: Apearance,Urine CLEAR (Clear); Bilirubin,Urine Negative (Negative); Blood, Urine Small mg/dL (Negative); Glucose,Urine (UA) Negative (Negative); Ketones,Urine Negative (Negative); Nitrite,Urine Negative (Negative); Protein,Urine 100 MG/DL; RBC,Urine 2 /HPF (0-4); Squamous Epithelial Cell,Urine Occasional /HPF (0-10); Urine Color Yellow (Yellow); Urine Specific Gravity 1.009 (1.001-1.035); WBC,Urine 1 /HPF (0-6)
[2016-06-27 00:17] LABS: Bilirubin,Direct 0.4 MG/DL (0.0-0.20)
[2016-06-27 00:19] LABS: Albumin 3.6 G/DL (3.4-5.0); Bilirubin,Total 1.6 MG/DL (0.2-1.0); Calcium 8.7 MG/DL (8.5-10.1); Osmolality,Calculated 279.3 MOS/KG (273-304); Potassium 4.4 MMOL/L (3.5-5.1); Total Protein 7.7 G/DL (6.4-8.3)
[2016-06-27] MEDS ORDERED: diphenhydrAMINE 50 MG/1 ML VIAL ONE (00:23)
[2016-06-27] MEDS ORDERED: HYDROmorphone 2 MG/1 ML VIAL IV STA (00:41)
[2016-06-27] MEDS ORDERED: HYDROmorphone 2 MG/1 ML VIAL ONE (00:44)
[2016-06-27] MEDS ORDERED: diphenhydrAMINE 50 MG/1 ML VIAL IV STA (00:46)
[2016-06-27] MEDS ORDERED: ONDANSETRON 4 MG/2 ML VIAL IV PRN (00:59)
[2016-06-27] MEDS ORDERED: diphenhydrAMINE CAP 25 MG CAPSULE PO PRN (00:59)
[2016-06-27] MEDS ORDERED: ACETAMINOPHEN 325 MG TABLET PO PRN (00:59)
[2016-06-27] MEDS ORDERED: ZALEPLON 5 MG CAPSULE PO PRN (00:59)
[2016-06-27] MEDS ORDERED: ENOXAPARIN 40 MG/0.4 ML SYRINGE SUBCUT SCH (01:00)
--- NOTE | 2016-06-27 02:03 | Hospitalist History & Physical ---
Assessment and Plan (1) Acute sickle cell crisis Status: Resolved Assessment and plan: This is a 31 year of female with acute sickle cell crisis. She has been admitted for observation and management of her crisis. -IV fluids with LR at 200 mls/hr -Pain management -Benadryl 25 mg q6h prn -Hyrdroxyurea 1000 mg daily -Continue home meds -Rocephin 1000 mg IV Q24H for infection prophylaxis -Repeat CBC, BMP, LDH, Mg, Retic count in am Current Visit: No History of Present Illness Chief complaint: Sickle Cell Crisis History of present illness: Ms. Victor Hugo Stack is a 31 year old female with a history of sickle cell anemia presents to the ED today with complains of sickle cell crisis with onset 4 days ago. She states that she is typically able to manage her anemia with medication , IV fluids and occasional pain med through the sickle cell clinic in [place]. She reports that she had a blood exchange in April and had been doing well for nearly two months before this crisis. She tells me she is normally able to handle a crisis without having to take the pain meds, however, she has been taking them since Friday because the pain was so great. She went to the sickle cell clinic earlier this week, and says she would have gone back today if the her pain wasn't too much to bear. She complains of pain in her knees, lower back , chest and neck. She's also experiencing what she calls a "crisis headache". Her reticulocyte percentage is 15.6, which is high for her. WBC 15.0, Hgb 7.6, Hct 21.2, total bili 1.60, lactate dehydrogenase 463. She will be admitted to the hospital medicine service for further management of her crisis. She is a full code. Home Medications Medication Instructions Recorded Confirmed Type Folic Acid Tab 1 mg PO DAILY tablet 05/25/14 06/04/16 Rx Morphine ER Tab [Ms Contin] 30 mg PO Q12H PRN 12/03/14 06/04/16 History Hydroxyurea [Hydrea] 1,000 mg PO DAILY 04/26/15 06/04/16 History Rivaroxaban [Xarelto] 20 mg PO DAILY W/SUPPER tablet 10/16/15 06/04/16 Rx HYDROmorphone TAB [Dilaudid Tab] 4 mg PO Q4H PRN #20 tablet 03/10/16 06/04/16 Rx Morphine Ir Tab [Morphine IR Tab] 15 mg PO Q4HR PRN #20 tablet 03/10/16 Rx Deferasirox [Jadenu] 4 tablet PO DAILY 04/15/16 06/04/16 Rx Norethindrone 0.35 mg PO DAILY 06/04/16 06/04/16 History HYDROcodone/ACETAMIN 10-325 [Mobile 1 tablet PO Q6H #14 tablet 06/27/16 Rx 10-325] Ondansetron Odt Tab [Zofran Odt] 4 mg PO Q6H #15 tablet 06/27/16 Rx Allergies Allergy/AdvReac Type Severity Reaction Status Date / Time plastic tape Allergy ITCHING Uncoded 06/15/16 17:11 Medical,Surgical,& Family Hx - Medical History Psychological: History of: Anxiety Disorders HEENT: History of: HEENT Problems (nose bleed) Respiratory: History of: Bronchitis, Pneumonia Hematology: History of: Anemia, Blood Transfusion Reaction (2014), Sickle Cell Disease, Blood Disorders - Surgical History Thoracic Surgeries: Patient denies;: Organ Transplant, Lobectomy Neurologic Surgeries: Patient denies: Neurologic Surgery HEENT Surgeries: Surgical HX of: Tonsilectomy & Adenoidectomy (1993) Abdominal Surgeries: Surgical HX of: Appendectomy, Cholecystectomy (2005) Reproductive Surgeries: Patient denies;: Genitourinary Surgery Orthopedic Surgeries: Surgical HX of;: Orthopedic Surgery (left sholder replacement in 2008), Total Hip Replacement (2007) - Family History Family History: Reports;: Family Hypertension (grandmother) Denies;: Family Diabetes Comment Only: Family Cancer (grandfather had mouth cancer) - Social History Smoking Status: Never smoker Frequency of Alcohol Use: None Type of Drug Use: None Marital Status: Lives With:: Spouse Functional capacity: independent ambulation - Constitutional Constitutional: Present: headache(s). Absent: fever(s) - EENT Eyes: Absent: blurry vision, loss of vision Ears: Absent: decreased hearing, tinnitus Nose, mouth and throat: Present: headache(s), neck pain. Absent: hoarseness, lip swelling, sore throat, vertigo - Cardiovascular Cardiovascular: Present: chest pain at rest. Absent: dyspnea, dyspnea on exertion, edema - Respiratory Respiratory: Absent: cough, dyspnea, dyspnea on exertion, wheezing, pain on inspiration - Gastrointestinal Gastrointestinal: Absent: abdominal pain, constipation, diarrhea, nausea, vomiting - Genitourinary Genitourinary: Absent: difficulty urinating, dysuria, flank pain, hematuria - Neurological Neurological: Present: headache(s). Absent: abnormal speech, confusion, syncope - Psychiatric Psychiatric: Present: anxiety. Absent: confusion, depression - Endocrine Endocrine: Absent: cold intolerance, heat intolerance - Hematologic/Lymphatic Hematologic/Lymphatic: Absent: easy bleeding, easy bruising Exam - Constitutional Vitals: Period Temp Pulse Resp BP Sys/Whaley Pulse Ox Last 24 Hr 99.2 F 78-96 20-20 95-110/70-85 91-100 Exam: General appearance: normal weight, moderate distress - Head Head exam: Present: normocephalic, atraumatic - Eye Eye exam: Present: EOMI. Absent: conjunctival injection, nystagmus Pupils: Present: XENIA, normal accommodation - ENT ENT exam: Present: normal exam, normal external ear exam - Neck Neck exam: Present: normal inspection. Absent: lymphadenopathy, thyromegaly - Respiratory Respiratory exam: Present: clear to auscultation bilaterally. Absent: rales, rhonchi, wheezes - Cardiovascular Cardiovascular exam: Present: regular rate and rhythm. Absent: carotid bruit, gallop, rubs - GI/Abdominal GI/Abdominal exam: Present: normal bowel sounds. Absent: ascites, distended, mass - Extremities Exam Extremities exam: Present: normal inspection, normal capillary refill. Absent: edema - Back Exam Back exam: Absent: CVA tenderness (L), CVA tenderness (R) - Neurological Exam Neurological exam: Present: alert, oriented X3 - Psychiatric Psychiatric exam: Present: normal affect, normal mood - Skin Skin exam: Present: normal color, warm, dry Results - Labs CBC & BMP: 06/26/16 23:49 06/26/16 23:49 Lab Results: I have reviewed the past 24 hour labs
[2016-06-27] MEDS: MORPHINE IR 15 MG TABLET PO PRN ×2 (03:18→10:52)
[2016-06-27] MEDS: cefTRIAXone 1,000 MG in SODIUM CHLORIDE 0.9% 100 ML IV SCH (03:24)
[2016-06-27] MEDS: LACTATED RINGERS 1,000 ML IV SCH ×4 (03:28→17:39)
[2016-06-27] MEDS: HYDROmorphone 2 MG/1 ML VIAL IV PRN ×4 (04:57→21:26)
[2016-06-27] MEDS: diphenhydrAMINE 50 MG/1 ML VIAL IV PRN ×3 (04:59→19:22)
[2016-06-27 07:19] LABS: Basophils % 0.3 % (0.0-0.8); Eosinophils # 1.2 10*3/uL (0.0-0.87); Eosinophils % 8.6 % (0.00-10.9); Hematocrit 18.8 VOL% (35.7-47.0); Hemoglobin 6.8 GM/DL (12.0-16.0); Immature Granulocytes % 0.4 %; Immature Granulocytes Absolute 0.05 #; Lymphocytes # 5.7 10*3/uL (1.4-4.0); Lymphocytes % 41.5 % (21.3-54.2); Mean Corpuscular HGB Conc 36.2 GM/DL (32-36); Mean Corpuscular Hemoglobin 36 PG (27-34); Mean Corpuscular Volume 98.9 FL (87-102); Mean Platelet Volume 10.9 FL (9.6-12.0); Monocytes # 1.2 10*3/uL (0.11-0.8); Monocytes % 8.6 % (1.7-12.7); NRBC # 0.41 10*3/uL; Neutrophils # 5.6 10*3/uL (1.4-7.4); Neutrophils % 40.6 % (38.7-73.9); Platelet Count 268 T/CUMM (130-400); Red Cell Distribution Width 18.6 % (9.3-17.3); White Blood Count 13.8 T/CUMM (4-12)
[2016-06-27 07:51] LABS: Calcium 8.1 MG/DL (8.5-10.1); Magnesium 1.9 MG/DL (1.8-2.4); Osmolality,Calculated 278.4 MOS/KG (273-304); Potassium 4.2 MMOL/L (3.5-5.1)
[2016-06-27] MEDS ORDERED: SODIUM CHLORIDE 0.9% 250 ML IV PRN (08:18)
[2016-06-27] MEDS: FOLIC ACID 1 MG TABLET PO SCH (08:45)
[2016-06-27] MEDS: PANTOPRAZOLE 40 MG TABLET PO SCH (08:45)
[2016-06-27] MEDS: HYDROXYUREA 500 MG CAPSULE PO SCH (08:45)
[2016-06-27] MEDS: MORPHINE 2 MG/1 ML SYRINGE IV PRN ×3 (12:52→19:15)
[2016-06-27] MEDS: RIVAROXABAN 20 MG TABLET PO SCH (16:31)
[2016-06-28] MEDS: MORPHINE 2 MG/1 ML SYRINGE IV PRN ×4 (00:04→10:50)
[2016-06-28] MEDS: diphenhydrAMINE 50 MG/1 ML VIAL IV PRN ×5 (00:04→23:47)
[2016-06-28] MEDS: HYDROmorphone 2 MG/1 ML VIAL IV PRN ×7 (01:39→23:47)
[2016-06-28] MEDS: LACTATED RINGERS 1,000 ML IV SCH (06:54)
[2016-06-28] MEDS: cefTRIAXone 1,000 MG in SODIUM CHLORIDE 0.9% 100 ML IV SCH (06:59)
[2016-06-28 09:00] LABS: Basophils # 0.1 10*3/uL (0.0-0.2); Basophils % 0.4 % (0.0-0.8); Eosinophils % 8.8 % (0.00-10.9); Hematocrit 23.4 VOL% (35.7-47.0); Hemoglobin 8.4 GM/DL (12.0-16.0); Immature Granulocytes % 0.5 %; Immature Granulocytes Absolute 0.06 #; Lymphocytes # 4.3 10*3/uL (1.4-4.0); Lymphocytes % 36.9 % (21.3-54.2); Mean Corpuscular HGB Conc 35.9 GM/DL (32-36); Mean Corpuscular Hemoglobin 34 PG (27-34); Mean Corpuscular Volume 93.2 FL (87-102); Mean Platelet Volume 10.5 FL (9.6-12.0); Monocytes # 0.9 10*3/uL (0.11-0.8); Monocytes % 7.3 % (1.7-12.7); NRBC # 0.42 10*3/uL; Neutrophils # 5.4 10*3/uL (1.4-7.4); Neutrophils % 46.1 % (38.7-73.9); Platelet Count 270 T/CUMM (130-400); Red Blood Count 2.51 MC/CUMM (3.8-5.5); Red Cell Distribution Width 19.5 % (9.3-17.3); White Blood Count 11.7 T/CUMM (4-12)
[2016-06-28] MEDS: HYDROXYUREA 500 MG CAPSULE PO SCH ×2 (09:24→17:14)
[2016-06-28] MEDS: PANTOPRAZOLE 40 MG TABLET PO SCH ×3 (09:24→17:18)
[2016-06-28] MEDS: FOLIC ACID 1 MG TABLET PO SCH ×3 (09:25→17:18)
[2016-06-28 09:35] LABS: Elliptocytes Few; Eosinophils 8 % (0-10); Hypochromasia Slight; Lymphocytes 34 % (20-55); Nucleated Red Blood Cells 3 (0-5); Platelet Estimate Adequate; Segmented Neutrophils 54 % (50-85); Target Cells Few; Total Cells Counted 100
[2016-06-28 09:36] LABS: Sickle Cells Slight
--- NOTE | 2016-06-28 10:14 | EKG Report ---
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
--- NOTE | 2016-06-28 13:13 | Hospitalist Progress Note ---
Assessment and Plan (1) Acute sickle cell crisis Status: Resolved Assessment and plan: Continue pain management. Patient should have LDH and CBC and reticulocyte count done tomorrow. Out of bed to chair. Encourage oral fluid intake. Current Visit: No (2) Acute pain Status: Acute Assessment and plan: As above. Become the signs of symptoms of panic including chest pain respiratory distress so for focal neurologic deficits. Current Visit: No Hospitalist: Subjective Interval history: Patient has been seen interviewed and examined and chart has been reviewed. Admitted to the hospital yesterday with acute sickle cell crisis. This morning she is complaining on her chronic right hip pain but also chest pains. EKG was done that shows no acute ST-T abnormalities. Normal sinus rhythm with a rate below 100 above 60. This patient is followed closely by Dr. Victoria in [place] she is very conversant about sickle cell disease. 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 I will therefore avoid high- dose ibuprofen. She is denying fevers denying shortness of breath denies headaches no focal neurologic deficits still a work hematocrit around 18 yesterday and they note that she was transfused. Does have history of iron overload already should be avoiding unnecessary transfusions. Exam - Constitutional Vitals: Period Temp Pulse Resp BP Sys/Whaley Pulse Ox Last 24 Hr 98.3 F-99.7 F 73-101 16-18 95-122/54-72 91-99 General appearance: normal weight - Head Head exam: Present: normocephalic, atraumatic - Eye Eye exam: Present: EOMI Pupils: Present: XENIA - ENT ENT exam: Present: normal exam, normal oropharynx - Neck Neck exam: Present: normal inspection, other (No thyromegaly no adenopathy) - Respiratory Respiratory exam: Present: clear to auscultation bilaterally, other (No wheezing no rales) - Cardiovascular Cardiovascular exam: Present: regular rate and rhythm - GI/Abdominal GI/Abdominal exam: Present: normal bowel sounds, soft - Extremities Exam Extremities exam: Present: full ROM - Back Exam Back exam: Present: normal inspection, other (Paralumbar discomfort on palpation ) - Neurological Exam Neurological exam: Present: alert, oriented X3, CN II-XII intact - Psychiatric Psychiatric exam: Present: normal affect, normal mood - Skin Skin exam: Present: normal color, warm, dry Results - Labs CBC & BMP: 06/28/16 08:21 06/27/16 05:36 Lab Results: I have reviewed the past 24 hour labs
[2016-06-28] MEDS: JADENU 180 MG PO SCH (17:12)
[2016-06-28] MEDS: RIVAROXABAN 20 MG TABLET PO SCH (17:14)
[2016-06-28] MEDS: MORPHINE IR 15 MG TABLET PO PRN ×2 (18:05→22:10)
[2016-06-29] MEDS: LACTATED RINGERS 1,000 ML IV SCH ×3 (01:54→11:46)
[2016-06-29] MEDS: cefTRIAXone 1,000 MG in SODIUM CHLORIDE 0.9% 100 ML IV SCH (01:54)
[2016-06-29] MEDS: MORPHINE IR 15 MG TABLET PO PRN ×5 (02:32→22:07)
[2016-06-29] MEDS: HYDROmorphone 2 MG/1 ML VIAL IV PRN ×5 (04:09→19:57)
[2016-06-29] MEDS: diphenhydrAMINE 50 MG/1 ML VIAL IV PRN ×3 (06:10→17:58)
[2016-06-29] MEDS: MORPHINE ER 30 MG TABLET PO PRN (11:45)
--- NOTE | 2016-06-29 14:38 | Hospitalist Progress Note ---
Assessment and Plan (1) Acute sickle cell crisis Status: Resolved Assessment and plan: Continue pain management. Patient should have LDH and CBC and reticulocyte count done tomorrow. Out of bed to chair. Encourage oral fluid intake. Current Visit: No (2) Acute pain Status: Acute Assessment and plan: As above. Become the signs of symptoms of panic including chest pain respiratory distress so for focal neurologic deficits. Current Visit: No Hospitalist: Subjective Interval history: Patient has been seen interviewed and examined and chart has been reviewed. Patient continued to complain of significant pain. He is on a lot of opioids already. I cannot use non-steroid anti-inflammatory medications because she is on Xarelto. At one point she was quite unhappy because she thought it was under with her regarding requesting for pain education. However were explained to her in front of her mother that there is no reason to be under lab but my intention was to stress the fact that isotope to the IV morphine yesterday because she was developing hypotension. Still has enough medication will take care of her pain. Both mother and patient seemed to have understood my explanation and they were happy with my explanation. Exam - Constitutional Vitals: Period Temp Pulse Resp BP Sys/Whaley Pulse Ox Last 24 Hr 98.2 F-99 F 83-112 18-20 97-122/64-83 90-98 General appearance: normal weight - Head Head exam: Present: normal inspection - Eye Eye exam: Present: EOMI Pupils: Present: XENIA - ENT ENT exam: Present: normal exam, normal oropharynx - Neck Neck exam: Present: normal inspection - Respiratory Respiratory exam: Present: clear to auscultation bilaterally - Cardiovascular Cardiovascular exam: Present: regular rate and rhythm - GI/Abdominal GI/Abdominal exam: Present: normal bowel sounds, soft - Extremities Exam Extremities exam: Present: full ROM, other (Movement is admitted with complaints of pain) - Back Exam Back exam: Present: normal inspection - Neurological Exam Neurological exam: Present: alert, oriented X3, CN II-XII intact - Psychiatric Psychiatric exam: Present: other (Subdued affect) - Skin Skin exam: Present: normal color, warm, dry Results - Labs CBC & BMP: 06/28/16 08:21 06/27/16 05:36 Lab Results: I have reviewed the past 24 hour labs (Hemoglobin 8.4 hematocrit 23.4 from yesterday this will be repeated day after tomorrow)
[2016-06-29] MEDS: DEXTROSE 5% NACL 0.45% 1,000 ML IV SCH (16:01)
[2016-06-29] MEDS: RIVAROXABAN 20 MG TABLET PO SCH (16:15)
[2016-06-29] MEDS: PANTOPRAZOLE 40 MG TABLET PO SCH (16:15)
[2016-06-29] MEDS: FOLIC ACID 1 MG TABLET PO SCH (16:15)
[2016-06-29] MEDS: HYDROXYUREA 500 MG CAPSULE PO SCH (16:15)
[2016-06-29] MEDS: JADENU 180 MG PO SCH (16:16)
[2016-06-29] MEDS: HydrOXYzine PAMOATE 50 MG CAPSULE PO PRN (19:58)
[2016-06-30] MEDS: HYDROmorphone 2 MG/1 ML VIAL IV PRN ×6 (00:14→22:25)
[2016-06-30] MEDS: diphenhydrAMINE 50 MG/1 ML VIAL IV PRN ×4 (00:14→22:25)
[2016-06-30] MEDS: cefTRIAXone 1,000 MG in SODIUM CHLORIDE 0.9% 100 ML IV SCH (01:56)
[2016-06-30] MEDS: HydrOXYzine PAMOATE 50 MG CAPSULE PO PRN (03:01)
[2016-06-30] MEDS: MORPHINE IR 15 MG TABLET PO PRN ×5 (03:01→23:53)
[2016-06-30] MEDS: DEXTROSE 5% NACL 0.45% 1,000 ML IV SCH ×2 (07:40→23:52)
[2016-06-30] MEDS: JADENU 180 MG PO SCH (08:08)
[2016-06-30] MEDS: MORPHINE ER 30 MG TABLET PO PRN ×2 (09:56→21:08)
--- NOTE | 2016-06-30 11:18 | Hospitalist Progress Note ---
Assessment and Plan (1) Acute sickle cell crisis Status: Resolved Assessment and plan: Continue pain management. Raise Dilaudid to 3 mg IV every 4 hours as needed. Lactic dehydrogenase is lower than at admission. She does have an elevated reticulocyte count suggesting mild activity Current Visit: No (2) Acute pain Status: Acute Assessment and plan: As above. Current Visit: No Hospitalist: Subjective Interval history: Patient has been seen interviewed and examined. She is still complaining of unrelenting pain musculoskeletal. She is also complaining of headaches. Itching is better. Analgesia profile has been reviewed. I will raise her hydromorphone to 3 mg every 4 mg IV as needed. Exam - Constitutional Vitals: Period Temp Pulse Resp BP Sys/Whaley Pulse Ox Last 24 Hr 98.9 F-99.7 F 84-112 16-20 101-116/63-83 94-99 General appearance: normal weight, severe distress, other (Pain) - Head Head exam: Present: normal inspection, normocephalic, atraumatic - Eye Eye exam: Present: EOMI, other (Icteric sclera no conjunctival petechia. I am concerned with the amount of Tylenol she is getting in) Pupils: Present: XENIA - ENT ENT exam: Present: normal exam - Neck Neck exam: Present: normal inspection - Respiratory Respiratory exam: Present: clear to auscultation bilaterally - Cardiovascular Cardiovascular exam: Present: regular rate and rhythm - GI/Abdominal GI/Abdominal exam: Present: normal bowel sounds, soft - Extremities Exam Extremities exam: Present: other (Generalized musculoskeletal pain that is limiting movement but has seen the patient sitting in bed with legs crossed.) - Neurological Exam Neurological exam: Present: alert, oriented X3, CN II-XII intact - Psychiatric Psychiatric exam: Present: normal affect, normal mood - Skin Skin exam: Present: normal color, warm Results - Labs CBC & BMP: 06/28/16 08:21 06/27/16 05:36 Lab Results: I have reviewed the past 24 hour labs
[2016-06-30] MEDS: PANTOPRAZOLE 40 MG TABLET PO SCH (16:11)
[2016-06-30] MEDS: RIVAROXABAN 20 MG TABLET PO SCH (16:12)
[2016-06-30] MEDS: HYDROXYUREA 500 MG CAPSULE PO SCH (16:12)
[2016-06-30] MEDS: FOLIC ACID 1 MG TABLET PO SCH (16:12)
[2016-07-01] MEDS: HYDROmorphone 2 MG/1 ML VIAL IV PRN ×5 (02:32→20:57)
[2016-07-01] MEDS: cefTRIAXone 1,000 MG in SODIUM CHLORIDE 0.9% 100 ML IV SCH (02:32)
[2016-07-01] MEDS: MORPHINE IR 15 MG TABLET PO PRN ×3 (04:48→14:29)
[2016-07-01] MEDS: diphenhydrAMINE 50 MG/1 ML VIAL IV PRN ×3 (06:27→20:57)
[2016-07-01] MEDS: MORPHINE ER 30 MG TABLET PO PRN (08:38)
--- NOTE | 2016-07-01 11:13 | Hospitalist Progress Note ---
Assessment and Plan (1) Acute sickle cell crisis Status: Resolved Assessment and plan: Continue pain management. Raise Dilaudid to 3 mg IV every 4 hours as needed. Lactic dehydrogenase is lower than at admission. She does have an elevated reticulocyte count suggesting mild activity I am awaiting a phone call from the [facility] sickle cell unit. Patient is followed very closely by Dr. Victoria. They did not show interest on how much pain medication she is requesting. Current Visit: No (2) Acute pain Status: Acute Assessment and plan: As above. Current Visit: No Hospitalist: Subjective Interval history: Patient has been seen interviewed and examined and chart has been reviewed. Today she is found pacing the in the room stating that she cannot lay down because she is in pain. Patient is on multiple opioid analgesics both IV and oral. This is coming close to day #4 days does not seem to be decrescendo this pain complaint. There is a possibility of tachyphylaxis to these pain medications with patient has been on them for a long time cannot rule out possibility of dependency. Phone call to consult [facility] sickle-cell division to see what her profile has been there. She is followed in [place] and he is to be followed here during her pediatric days. Informed that the patient was admitted here to the emergency room on the was the same day that she was seen in [place] that give her a cocktail there was discharged and she came to this hospital. Waiting for a phone call from the nurse practitioner in charge of that unit who was working today. It called for Dr. Victoria who is the data security coordinator in charge on her case unfortunately she is out today. I will continue with current analgesics no increase in medications at this time. Issues of infection, vasculopathy relating to her heart brain are quiescent at this time. Exam - Constitutional Vitals: Period Temp Pulse Resp BP Sys/Whaley Pulse Ox Last 24 Hr 98.3 F-99.5 F 69-95 18-20 89-107/54-68 92-99 General appearance: normal weight - Head Head exam: Present: normocephalic, atraumatic - Eye Eye exam: Present: EOMI Pupils: Present: XENIA - ENT ENT exam: Present: normal exam - Neck Neck exam: Present: normal inspection - Respiratory Respiratory exam: Present: clear to auscultation bilaterally, other (No wheezing no rales no rhonchi) - Cardiovascular Cardiovascular exam: Present: regular rate and rhythm - GI/Abdominal GI/Abdominal exam: Present: normal bowel sounds, soft - Extremities Exam Extremities exam: Present: full ROM, other (Patient is able to ambulate conceived with crossed legs on the bed no joint effusions no swelling in the hands or feet can be seen with sickle cell crisis. The reticulocyte counts is robust LDH is on a decrease) - Neurological Exam Neurological exam: Present: alert, oriented X3, CN II-XII intact, other (She looks to be in distress with pain.) - Psychiatric Psychiatric exam: Present: other - Skin Skin exam: Present: normal color, warm, dry Results - Labs CBC & BMP: 06/28/16 08:21 06/27/16 05:36 Lab Results: I have reviewed the past 24 hour labs (We will repeat morning CBC tomorrow)
[2016-07-01] MEDS ORDERED: HYDROmorphone 2 MG/1 ML VIAL IV PRN (12:28)
[2016-07-01] MEDS: DEXTROSE 5% NACL 0.45% 1,000 ML IV SCH (16:28)
[2016-07-01] MEDS: JADENU 180 MG PO SCH (16:32)
[2016-07-01] MEDS: FOLIC ACID 1 MG TABLET PO SCH (16:32)
[2016-07-01] MEDS: RIVAROXABAN 20 MG TABLET PO SCH (16:33)
[2016-07-01] MEDS: HYDROXYUREA 500 MG CAPSULE PO SCH (16:33)
[2016-07-01] MEDS: PANTOPRAZOLE 40 MG TABLET PO SCH (16:33)
[2016-07-02] MEDS: HYDROmorphone 2 MG/1 ML VIAL IV PRN ×3 (00:33→08:45)
[2016-07-02] MEDS: diphenhydrAMINE 50 MG/1 ML VIAL IV PRN (04:17)
[2016-07-02 07:10] LABS: Basophils % 0.4 % (0.0-0.8); Eosinophils % 11.2 % (0.00-10.9); Hematocrit 20.1 VOL% (35.7-47.0); Immature Granulocytes % 0.2 %; Immature Granulocytes Absolute 0.02 #; Lymphocytes # 2.9 10*3/uL (1.4-4.0); Lymphocytes % 34.2 % (21.3-54.2); Mean Corpuscular HGB Conc 36.8 GM/DL (32-36); Mean Corpuscular Hemoglobin 33 PG (27-34); Mean Corpuscular Volume 90.5 FL (87-102); Mean Platelet Volume 11.3 FL (9.6-12.0); Monocytes # 0.7 10*3/uL (0.11-0.8); Monocytes % 8.6 % (1.7-12.7); NRBC # 0.09 10*3/uL; Neutrophils # 3.8 10*3/uL (1.4-7.4); Neutrophils % 45.4 % (38.7-73.9); Platelet Count 235 T/CUMM (130-400); Red Blood Count 2.22 MC/CUMM (3.8-5.5); Red Cell Distribution Width 18.8 % (9.3-17.3); White Blood Count 8.5 T/CUMM (4-12)
[2016-07-02 07:11] LABS: Hemoglobin 7.4 GM/DL (12.0-16.0)
[2016-07-02 07:22] LABS: Eosinophils 15 % (0-10); Lymphocytes 34 % (20-55); Nucleated Red Blood Cells 2 (0-5); Platelet Estimate Adequate; Segmented Neutrophils 46 % (50-85); Total Cells Counted 100
[2016-07-02 07:23] LABS: Elliptocytes Few; Howell-Jolly Bodies Slight; Hypochromasia 1+; Macrocytosis Slight; Pappenheimer Bodies Few; Polychromasia Slight; Sickle Cells Few; Target Cells Few
[2016-07-02] MEDS: JADENU 180 MG PO SCH (08:46)
[2016-07-02] MEDS: DEXTROSE 5% NACL 0.45% 1,000 ML IV SCH (08:46)
--- NOTE | 2016-07-02 10:06 | Discharge Summary ---
<SaadJesús - Last Filed: 07/02/16 10:02> Diagnosis - Discharge Diagnosis (1) Acute sickle cell crisis Status: Resolved (2) Acute pain Status: Acute Discharge Plan - Discharge Data Disposition: Disch To Home/Self Care Condition at Discharge: Stable Discharge Diet: advance to your usual diet Activity: resume usual activities as tolerated Hygiene: no restrictions Weight Bearing at Discharge: full weight bearing Driving: not until seen by doctor Contact your physician if you experience:: fever over 101, Nausea/Vomiting, Shortness of breath, pain uncontrolled by pain medications - Discharge Medications New HYDROcodone/ACETAMIN 10-325 [[place] 10-325] 1 tablet PO Q6H #14 tablet Ondansetron Odt Tab [Zofran Odt] 4 mg PO Q6H #15 tablet HydrOXYzine PAMOATE CAP [Vistaril Cap] 50 mg PO Q6H PRN #30 capsule PRN Reason: Anxiety Continue Folic Acid Tab 1 mg PO DAILY tablet Morphine ER Tab [Ms Contin] 30 mg PO Q12H PRN PRN Reason: Pain Hydroxyurea [Hydrea] 1,000 mg PO DAILY Rivaroxaban [Xarelto] 20 mg PO DAILY W/SUPPER tablet Morphine Ir Tab [Morphine IR Tab] 15 mg PO Q4HR PRN #20 tablet PRN Reason: Pain Deferasirox [Jadenu] 4 tablet PO DAILY Norethindrone 0.35 mg PO DAILY HYDROmorphone TAB [Dilaudid Tab] 4 mg PO Q4H PRN #20 tablet PRN Reason: Pain Moderate (4-7) - Follow Up or Referral - Forms/Instructions Instructions: Sickle Cell Crisis (DC) Exam - Constitutional Vitals: Period Temp Pulse Resp BP Sys/Whaley Pulse Ox Last 24 Hr 98.0 F-99.6 F 81-92 16-22 99-123/59-68 95-100 General appearance: normal weight, no acute distress, mild distress - Head Head exam: Present: normal inspection, normocephalic, atraumatic - Eye Eye exam: Present: EOMI Pupils: Present: XENIA - ENT ENT exam: Present: normal exam - Neck Neck exam: Present: normal inspection - Respiratory Respiratory exam: Present: clear to auscultation bilaterally - Cardiovascular Cardiovascular exam: Present: regular rate and rhythm - GI/Abdominal GI/Abdominal exam: Present: normal bowel sounds, soft - Extremities Exam Extremities exam: Present: full ROM - Back Exam Back exam: Present: normal inspection - Neurological Exam Neurological exam: Present: alert, oriented X3, CN II-XII intact - Psychiatric Psychiatric exam: Present: normal affect, normal mood, other (Patient is very cooperative with all instructions. She did seem to be in pain subjectively.) - Skin Skin exam: Present: normal color, warm, dry Discharge Results Labs on day of discharge: Labs from last 24 hours 07/02/16 06:22 WBC 8.5 RBC 2.22 L Hgb 7.4 L Hct 20.1 L MCV 90.5 MCH 33 MCHC 36.8 H RDW 18.8 H Plt Count 235 MPV 11.3 Neut % (Auto) 45.4 Lymph % (Auto) 34.2 Christian % (Auto) 8.6 Eos % (Auto) 11.2 H Baso % (Auto) 0.4 Neut # (Auto) 3.8 Lymph # (Auto) 2.9 Christian # (Auto) 0.7 Eos # (Auto) 1.0 H Baso # (Auto) 0.0 Total Counted 100 Immature Gran % 0.2 Nucleated RBC % 1.1 Immature Gran # 0.02 Segmented Neutrophils 46 L Lymphocytes 34 Monocytes 5 Eosinophils 15 H Nucleated RBCs 2 Nucleated RBCs # 0.09 Platelet Estimate Adequate Polychromasia Slight Hypochromasia 1+ Macrocytosis Slight Pappenheimer Bodies Few Sickle Cells Few Target Cells Few Zamarripa-Bangs Bodies Slight Elliptocytes Few Morphology Comment DS: Provider Date of admission: 06/27/16 00:59 Primary care physician: . No PCP Attending physician on admission: Eliazar Morrissey MD Discharging clinician: Jesús Nash MD <Brent Fam - Last Filed: 07/02/16 10:49> Hospital Course - Hospital Course Hospital Course: This patient is a 31-year old female who was admitted through the [place] ED on 06/26/16 for management of an acute sickle cell crisis. Her course was relatively uncomplicated highlighted by management of her pain. Despite being on several IV and PO forms of opioids, the patient's pain was unrelenting. She was transfused with 2 units of PRBCs on 06/28/16 and treated with IV fluids, Xarelto 20 mg po daily with supper, hydroxyurea 1000 mg po daily , Vistaril 50 mg po q6h prn, Benadryl 25 mg IV q6h prn, dilaudid 2 mg IV q4h prn and 1 mg IV q3h prn, morpine 15 mg po q4h and 30 mg po q12h, and norco 10- 325. Blood cultures and urine cultures all came back negative. At this time the patient has reached maximum benefit from hospitalization and is stable for discharge. She will be discharged home with the following new prescriptions: [place] 10-325 po q6h, Zofran 4 mg po q6h, and Vistaril 50 mg po q6h. 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 - Time spent with patient Time with patient DS: Greater than 30 minutes DS: Provider Expected date of discharge: 07/02/16
[2016-07-02 12:36] VITALS: BP 128/86
[2016-07-03] MEDS ORDERED: NORETHINDRONE 0.35 MG PO SCH (09:00)
== END 2016-07-02 14:40 | disposition home or self-care (01) | DRG 812 ==
LOC: N.ED 22:15 → SUATTDRO 06-27 00:59 → N.EDINP 06-27 00:59 → N.5E 06-27 02:29
PROVIDERS: ADMIT Family Medicine; ATTEND Internal Medicine Infectious Disease

== ENCOUNTER 2016-08-31 10:33 | Inpatient (IN) ==
[2016-08-31] MEDS ORDERED: SODIUM CHLORIDE 0.9% 1,000 ML IV STA (10:52)
[2016-08-31] MEDS ORDERED: HYDROmorphone 2 MG/1 ML VIAL IV STA ×2 (10:56→12:10)
[2016-08-31] MEDS ORDERED: ONDANSETRON 4 MG/2 ML VIAL IV STA (10:56)
--- NOTE | 2016-08-31 11:01 | Emergency Department Note ---
Chandan Johns Manpreet, am scribing for, and in the presence of, Carmelo Thurston MD 10: 59. Karena Johns James D, MD, personally performed the services described in this documentation, ascribed by Moris Hawley in my presence, and it is both accurate and complete . Arrival - Arrival Chief Complaint: Sickle Cell Stated Complaint: sickle cell crisis ED Nursing Triage Note: chest wall pain for two days that is worse this morning. lower back pain and knee pain. reports has tried to treat at home without success. Mode of Arrival: Ambulatory Limitations: No Limitations Source: Patient, RN Notes Reviewed - History of Present Illness HPI Narrative: Pt is a 31 y/o female, with PMHx of bronchitis, PNA, and sickle cell dz, who presents to the ED with CC of CP, lower back pain, and knee pain due to sickle cell crisis since the past 2 days. Pt c/o constant aches, SOB, but denies any fever or diarrhea. Pt's last blood transfusion was in July, and also saw her PCP, Dr. Victoria, at [facility] the same time period. Pt does not have a PCP in [place]. Pt's CP is reproducible and is worse on breathing. No other pains/ complaints reported to ED. Onset (ago): day(s) Consistency: constant Severity: moderate Quality: aching Date of Last Menstrual Period: mirena Allergies/Adverse Reactions: Allergies Allergy/AdvReac Type Severity Reaction Status Date / Time plastic tape Allergy ITCHING Uncoded 06/15/16 17:11 Home Medications: Home Medications Medication Instructions Recorded Confirmed Type Folic Acid Tab 1 mg PO DAILY tablet 05/25/14 08/31/16 Rx Morphine ER Tab [Ms Contin] 30 mg PO Q12H PRN 12/03/14 08/31/16 History Hydroxyurea [Hydrea] 1,000 mg PO DAILY 04/26/15 08/31/16 History Rivaroxaban [Xarelto] 20 mg PO DAILY W/SUPPER tablet 10/16/15 08/31/16 Rx HYDROmorphone TAB [Dilaudid Tab] 4 mg PO Q4H PRN #20 tablet 03/10/16 08/31/16 Rx Morphine Ir Tab [Morphine IR Tab] 15 mg PO Q4HR PRN #20 tablet 03/10/16 Rx Deferasirox [Jadenu] 720 mg PO DAILY 08/31/16 08/31/16 History Review of System - Review of System 12 point system: reviewed and no additional remarkable complaints except as stated - Review of System Constitutional: Absent: chills, diaphoresis, fever, weakness Head/Ears/Nose/Throat: Absent: sore throat Respiratory: Present: respiratory distress. Absent: cough Cardiovascular: Present: chest pain. 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) Hematology: History of: Anemia, Blood Transfusion Reaction (2014), Sickle Cell Disease, Blood Disorders - Surgical History Thoracic Surgeries: Patient denies;: Organ Transplant, Lobectomy Neurologic Surgeries: Patient denies: Neurologic Surgery HEENT Surgeries: Surgical HX of: Tonsilectomy & Adenoidectomy (1993) Abdominal Surgeries: Surgical HX of: Appendectomy, Cholecystectomy (2005) Reproductive Surgeries: Patient denies;: Genitourinary Surgery Orthopedic Surgeries: Surgical HX of;: Orthopedic Surgery (left sholder replacement in 2008), Total Hip Replacement (2007) - Family History Family History: Reports;: Family Hypertension (grandmother) Denies;: Family Diabetes Comment Only: Family Cancer (grandfather had mouth cancer) - Social History Smoking Status: Never smoker Exam Vital Signs: Vital Signs Temperature 99.1 F 08/31/16 10:37 Pulse Rate 89 08/31/16 11:21 Respiratory Rate 16 08/31/16 11:21 Blood Pressure 120/78 08/31/16 11:21 O2 Sat by Pulse Oximetry 100 08/31/16 11:21 GENERAL: This is a well-nourished well-developed black female chronically ill- appearing, in no apparent distress. VITAL SIGNS: Reviewed HEENT: Head is atraumatic and normocephalic. Pupils are equal round react to light. Extraocular movements are intact. Oropharynx is benign with moist mucous membranes. NECK: Neck is soft and supple without tenderness. There are no masses. There is no lymphadenopathy. LUNGS: Lungs are clear to auscultation. Chest rises symmetrically. There is anterior chest wall tenderness. CV: Heart is regular rate and rhythm without murmurs rubs or gallops. ABDOMEN: Abdomen is soft, nontender to palpation. There are no abdominal abnormal masses palpated. There is no organomegaly. Bowel sounds are present and active. SKIN: Skin is warm and dry. No rash. Slightly pale. EXTREMITIES: Patient has full range of motion without tenderness. There is no pedal edema. NEUROLOGIC: Awake alert and oriented 4. Cranial nerves II through XII are grossly intact. Motor is 5 over 5 in all extremities bilaterally. Course - Consultations Consultation #1: Discussed with hospitalist. Patient will be admitted to their service. Time: 12:12 Results - Labs CBC & BMP: 08/31/16 10:53 08/31/16 10:53 Lab Results: I have reviewed the patients labs Labs: Laboratory Tests 05/20/14 08/31/16 05:42 10:53 Percent Retic 13.0 H Total Bilirubin 0.93 L - Diagnostic Findings Procedure: Chest x-ray: image reviewed by me (No infiltrates, Mediport present with tip in the superior vena cava.) Disposition Clinical Impression: Sickle cell pain crisis Case discussed with: patient, patient's family Disposition: Still a Patient Condition: Stable
[2016-08-31] MEDS ORDERED: HYDROmorphone 2 MG/1 ML VIAL ONE ×2 (11:02→12:14)
[2016-08-31] MEDS ORDERED: ONDANSETRON 4 MG/2 ML VIAL ONE (11:02)
[2016-08-31 11:06] LABS: Basophils % 0.4 % (0.0-0.8); Eosinophils # 0.7 10*3/uL (0.0-0.87); Eosinophils % 6.1 % (0.00-10.9); Hematocrit 21.6 VOL% (35.7-47.0); Immature Granulocytes % 0.7 %; Immature Granulocytes Absolute 0.08 #; Lymphocytes # 4.9 10*3/uL (1.4-4.0); Lymphocytes % 43.6 % (21.3-54.2); Mean Corpuscular Hemoglobin 35 PG (27-34); Mean Corpuscular Volume 94.7 FL (87-102); Mean Platelet Volume 10.9 FL (9.6-12.0); Monocytes # 0.8 10*3/uL (0.11-0.8); Monocytes % 6.8 % (1.7-12.7); NRBC # 0.94 10*3/uL; Neutrophils # 4.7 10*3/uL (1.4-7.4); Neutrophils % 42.4 % (38.7-73.9); Platelet Count 350 T/CUMM (130-400); Red Blood Count 2.28 MC/CUMM (3.8-5.5); Red Cell Distribution Width 21.1 % (9.3-17.3); White Blood Count 11.1 T/CUMM (4-12)
[2016-08-31] MEDS ORDERED: diphenhydrAMINE 50 MG/1 ML VIAL IV STA (11:11)
[2016-08-31] MEDS ORDERED: diphenhydrAMINE 50 MG/1 ML VIAL ONE (11:14)
--- NOTE | 2016-08-31 11:29 | XRay Report ---
XR chest 1V portable Indication: Chest pain Comparison: 27 April 2016 Findings: The heart and mediastinum are normal in size and configuration. Right internal jugular Port-A-Cath is unchanged in position. The pulmonary vascularity is normal in caliber. Chronic changes are present in the lung bases similar to previous exam. No other lung infiltrates, effusions, pneumothorax or other abnormality is demonstrated. Impression: No evidence of acute process or interval change. PROCEDURE INTERPRETED AT [facility] DEPARTMENT OF RADIOLOGY Final Report Signed by: Dr. Aubrey Sky
[2016-08-31 11:34] LABS: Albumin 3.7 G/DL (3.4-5.0); Bilirubin,Total 1.6 MG/DL (0.2-1.0); Calcium 8.9 MG/DL (8.5-10.1); Osmolality,Calculated 272.8 MOS/KG (273-304); Potassium 4.4 MMOL/L (3.5-5.1); Total Protein 8.7 G/DL (6.4-8.3)
[2016-08-31 11:49] LABS: Hypochromasia 2+; Macrocytosis 1+; Microcytosis 1+; Pappenheimer Bodies Few; Polychromasia 1+; Sickle Cells 2+; Target Cells 1+
--- NOTE | 2016-08-31 14:08 | Hospitalist History & Physical ---
<Hunter Cardona - Last Filed: 08/31/16 14:05> Assessment and Plan (1) Sickle cell pain crisis Status: Acute Assessment and plan: Prn pain medication. Manage pain. IV hydration. Monitor patient. Current Visit: Yes (2) Anemia Status: Chronic Assessment and plan: Chronic issue for patient. Today's h&h is 8 and 21.6. Will monitor patient's h& h today and recheck in am. Current Visit: No History of Present Illness Chief complaint: sickle cell crisis History of present illness: Ms. Victor Hugo Stack is a 31 year old black female with a history of sickle cell disease, bronchitis, and pneumonia that presented to the ED with complaints of chest pain, lower back pain, and knee pain due to a sickle cell crisis. Patient states she has been having symptoms for the last 2 days. Patient also reports that she has been having a constant aching feeling along with shortness of breath. Patient denies radiation of chest pain numbness, tingling, fever, chills, or N/V/D. On examination in ED, patient was noted to talking on phone and performing other activities but reported a Home Medications Medication Instructions Recorded Confirmed Type Folic Acid Tab 1 mg PO DAILY tablet 05/25/14 08/31/16 Rx Morphine ER Tab [Ms Contin] 30 mg PO Q12H PRN 12/03/14 08/31/16 History Hydroxyurea [Hydrea] 1,000 mg PO DAILY 04/26/15 08/31/16 History Rivaroxaban [Xarelto] 20 mg PO DAILY W/SUPPER tablet 10/16/15 08/31/16 Rx HYDROmorphone TAB [Dilaudid Tab] 4 mg PO Q4H PRN #20 tablet 03/10/16 08/31/16 Rx Morphine Ir Tab [Morphine IR Tab] 15 mg PO Q4HR PRN #20 tablet 03/10/16 Rx Deferasirox [Jadenu] 720 mg PO DAILY 08/31/16 08/31/16 History Allergies Allergy/AdvReac Type Severity Reaction Status Date / Time plastic tape Allergy ITCHING Uncoded 06/15/16 17:11 Medical,Surgical,& Family Hx - Medical History Psychological: History of: Anxiety Disorders HEENT: History of: HEENT Problems (nose bleed) Respiratory: History of: Bronchitis, Pneumonia Musculoskeletal: History of: 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) Hematology: History of: Anemia, Blood Transfusion Reaction (2015), Sickle Cell Disease, Blood Disorders - Surgical History Thoracic Surgeries: Patient denies;: Organ Transplant, Lobectomy Neurologic Surgeries: Patient denies: Neurologic Surgery HEENT Surgeries: Surgical HX of: Tonsilectomy & Adenoidectomy (1993) Abdominal Surgeries: Surgical HX of: Appendectomy, Cholecystectomy (2005) Reproductive Surgeries: Patient denies;: Genitourinary Surgery Orthopedic Surgeries: Surgical HX of;: Orthopedic Surgery (left sholder replacement in 2008), Total Hip Replacement (2007) - Family History Family History: Reports;: Family Hypertension (grandmother) Denies;: Family Diabetes Comment Only: Family Cancer (grandfather had mouth cancer) - Social History Smoking Status: Never smoker Marital Status: Lives With:: Spouse Functional capacity: independent ambulation - Constitutional Constitutional: Present: weakness. Absent: chills, fever(s) - EENT Eyes: Present: requires corrective lense Ears: Absent: decreased hearing Nose, mouth and throat: Absent: headache(s) - Cardiovascular Cardiovascular: Present: chest pain at rest (related to sickle cell crisis). Absent: edema - Respiratory Respiratory: Present: cough, dyspnea - Gastrointestinal Gastrointestinal: Absent: abdominal pain - Genitourinary Genitourinary: Absent: difficulty urinating - Neurological Neurological: Absent: confusion - Psychiatric Psychiatric: Absent: anxiety Exam - Constitutional Vitals: Period Temp Pulse Resp BP Sys/Whaley Pulse Ox Last 24 Hr 99.1 F-99.1 F 82-111 16-20 103-120/66-85 94-100 General appearance: normal weight, no acute distress - Head Head exam: Present: normal inspection, normocephalic - Eye Eye exam: Present: EOMI. Absent: scleral icterus Pupils: Present: XENIA - ENT ENT exam: Present: normal exam - Respiratory Respiratory exam: Present: clear to auscultation bilaterally. Absent: wheezes - Cardiovascular Cardiovascular exam: Present: regular rate and rhythm - GI/Abdominal GI/Abdominal exam: Present: normal bowel sounds, soft. Absent: tenderness - Extremities Exam Extremities exam: Present: normal capillary refill, full ROM. Absent: edema - Back Exam Back exam: Present: normal inspection - Neurological Exam Neurological exam: Present: alert, oriented X3 - Psychiatric Psychiatric exam: Present: normal affect, normal mood - Skin Skin exam: Present: normal color, warm, dry Results - Labs CBC & BMP: 08/31/16 10:53 08/31/16 10:53 Lab Results: I have reviewed the past 24 hour labs <Jesús Nash - Last Filed: 08/31/16 15:05> History of Present Illness History of present illness: Ms. Victor Hugo Stack is a 31 year old female Exam - Constitutional Vitals: Period Temp Pulse Resp BP Sys/Whaley Pulse Ox Last 24 Hr 98.7 F-99.1 F 82-111 16-20 103-120/66-85 90-100 Results - Labs CBC & BMP: 08/31/16 10:53 08/31/16 10:53
[2016-08-31] MEDS ORDERED: ACETAMINOPHEN 325 MG TABLET PO PRN (14:22)
[2016-08-31] MEDS ORDERED: ALUMINUM/MAGNES/SIMETH MAX STR 30 ML UDCUP PO PRN (15:00)
[2016-08-31] MEDS: HYDROmorphone 2 MG/1 ML VIAL IV PRN ×3 (15:02→21:40)
[2016-08-31] MEDS: IBUPROFEN 800 MG TABLET PO SCH ×2 (15:02→20:46)
[2016-08-31] MEDS: SODIUM CHLORIDE 0.9% 1,000 ML IV SCH (15:55)
[2016-08-31] MEDS: LEVOFLOXACIN INJ 750 MG in PREMIX 1 EACH IV SCH (15:55)
[2016-08-31] MEDS: RIVAROXABAN 20 MG TABLET PO SCH (16:00)
[2016-08-31] MEDS: diphenhydrAMINE 50 MG/1 ML VIAL IV PRN (20:46)
[2016-08-31 21:36] LABS: Hematocrit 18.4 VOL% (35.7-47.0); Hemoglobin 6.7 GM/DL (12.0-16.0)
[2016-08-31] MEDS ORDERED: SODIUM CHLORIDE 0.9% 250 ML IV PRN (21:44)
--- NOTE | 2016-08-31 21:45 | Event Note ---
Patient's hemoglobin dropped to <7 so she will be transfused 2 units of pRBC's
[2016-09-01] MEDS: HYDROmorphone 2 MG/1 ML VIAL IV PRN ×8 (01:06→23:01)
[2016-09-01] MEDS: diphenhydrAMINE 50 MG/1 ML VIAL IV PRN ×4 (02:42→20:08)
[2016-09-01 07:18] LABS: Basophils % 0.3 % (0.0-0.8); Hematocrit 18.8 VOL% (35.7-47.0); Hemoglobin 6.5 GM/DL (12.0-16.0); Immature Granulocytes % 0.5 %; Immature Granulocytes Absolute 0.07 #; Lymphocytes # 5.8 10*3/uL (1.4-4.0); Mean Corpuscular HGB Conc 34.6 GM/DL (32-36); Mean Corpuscular Hemoglobin 33 PG (27-34); Mean Corpuscular Volume 96.4 FL (87-102); Mean Platelet Volume 11.1 FL (9.6-12.0); Monocytes % 7.4 % (1.7-12.7); NRBC # 0.71 10*3/uL; Neutrophils # 6.2 10*3/uL (1.4-7.4); Neutrophils % 43.8 % (38.7-73.9); Platelet Count 314 T/CUMM (130-400); Red Blood Count 1.95 MC/CUMM (3.8-5.5); Red Cell Distribution Width 19.6 % (9.3-17.3); White Blood Count 14.1 T/CUMM (4-12)
[2016-09-01 07:48] LABS: Apearance,Urine CLEAR (Clear); Bacteria,Urine Moderate /HPF (Few); Bilirubin,Urine Negative (Negative); Blood, Urine Moderate mg/dL (Negative); Glucose,Urine (UA) Negative (Negative); Hyaline Casts,Urine 2 /LPF (0-3); Ketones,Urine Negative (Negative); Mucus,Urine Occasional /LPF (Occasional); Nitrite,Urine Negative (Negative); Protein,Urine 100 MG/DL; RBC,Urine 12 /HPF (0-4); Squamous Epithelial Cell,Urine Occasional /HPF (0-10); Urine Color Amber (Yellow); Urine Specific Gravity 1.011 (1.001-1.035); WBC,Urine 2 /HPF (0-6)
[2016-09-01 07:50] LABS: Calcium 7.9 MG/DL (8.5-10.1); Magnesium 2.1 MG/DL (1.8-2.4); Osmolality,Calculated 277.4 MOS/KG (273-304); Risk Ratio 4.18; Thyroid Stimulating Hormone 9.18 uIU/ml (0.358-3.74); VLDL CHOLESTEROL 26.2 MG/DL
[2016-09-01] MEDS: SODIUM CHLORIDE 0.9% 1,000 ML IV SCH ×2 (07:55→23:02)
[2016-09-01] MEDS: PANTOPRAZOLE 40 MG TABLET PO SCH (08:00)
[2016-09-01] MEDS: FOLIC ACID 1 MG TABLET PO SCH (08:00)
[2016-09-01] MEDS: HYDROXYUREA 500 MG CAPSULE PO SCH (08:00)
[2016-09-01] MEDS: IBUPROFEN 800 MG TABLET PO SCH (08:00)
[2016-09-01] MEDS ORDERED: DEFERASIROX 720 MG PO SCH (09:00)
--- NOTE | 2016-09-01 11:42 | Hospitalist Progress Note ---
Assessment and Plan (1) Anemia Status: Chronic Assessment and plan: H/H dropped overnight to 6.5/18.8 Transfusion ordered overnight, patient refuses transfusion at this time Will recheck in am, if still low will attempt transfusion again. Current Visit: No (2) Sickle cell pain crisis Status: Acute Assessment and plan: Dilaudid and norco prn will add ketorolac prn IV fluids and supplemental oxygen Current Visit: Yes Hospitalist: Subjective Interval history: No acute events overnight. Patient reports that her pain is unchanged although the dilaudid does some to help. Exam - Constitutional Vitals: Period Temp Pulse Resp BP Sys/Whaley Pulse Ox Last 24 Hr 97.1 F-98.7 F 82-103 16-20 93-115/60-85 90-100 General appearance: over weight - Head Head exam: Present: normocephalic, atraumatic - Eye Eye exam: Present: EOMI Pupils: Present: XENIA - ENT ENT exam: Present: normal exam - Neck Neck exam: Present: normal inspection - Respiratory Respiratory exam: Present: clear to auscultation bilaterally - Cardiovascular Cardiovascular exam: Present: regular rate and rhythm - GI/Abdominal GI/Abdominal exam: Present: normal bowel sounds, soft. Absent: tenderness, rebound - Extremities Exam Extremities exam: Present: normal inspection - Back Exam Back exam: Present: normal inspection - Neurological Exam Neurological exam: Present: alert, oriented X3 - Psychiatric Psychiatric exam: Present: normal affect, normal mood - Skin Skin exam: Present: warm, intact Results - Labs CBC & BMP: 09/01/16 04:41 09/01/16 04:41
[2016-09-01] MEDS ORDERED: DEFERASIROX 180 MG PO SCH (13:51)
[2016-09-01] MEDS: LEVOFLOXACIN INJ 750 MG in PREMIX 1 EACH IV SCH (15:31)
[2016-09-01] MEDS: KETOROLAC 15 MG/1 ML VIAL IV PRN ×2 (15:33→23:02)
[2016-09-01] MEDS: RIVAROXABAN 20 MG TABLET PO SCH (17:17)
[2016-09-02] MEDS: HYDROmorphone 2 MG/1 ML VIAL IV PRN ×8 (02:01→23:30)
[2016-09-02] MEDS: diphenhydrAMINE 50 MG/1 ML VIAL IV PRN ×4 (02:02→20:23)
[2016-09-02] MEDS: KETOROLAC 15 MG/1 ML VIAL IV PRN ×4 (05:05→22:30)
[2016-09-02 07:19] LABS: Basophils # 0.1 10*3/uL (0.0-0.2); Basophils % 0.4 % (0.0-0.8); Eosinophils % 7.8 % (0.00-10.9); Immature Granulocytes % 0.4 %; Immature Granulocytes Absolute 0.05 #; Lymphocytes # 5.8 10*3/uL (1.4-4.0); Lymphocytes % 45.8 % (21.3-54.2); Mean Corpuscular HGB Conc 36.6 GM/DL (32-36); Mean Corpuscular Hemoglobin 35 PG (27-34); Mean Corpuscular Volume 94.6 FL (87-102); Mean Platelet Volume 11.1 FL (9.6-12.0); Monocytes # 0.9 10*3/uL (0.11-0.8); Monocytes % 6.9 % (1.7-12.7); NRBC # 0.79 10*3/uL; Neutrophils # 4.9 10*3/uL (1.4-7.4); Neutrophils % 38.7 % (38.7-73.9); Platelet Count 301 T/CUMM (130-400); Red Blood Count 1.85 MC/CUMM (3.8-5.5); Red Cell Distribution Width 20.1 % (9.3-17.3); White Blood Count 12.7 T/CUMM (4-12)
[2016-09-02 07:34] LABS: Hematocrit 17.5 VOL% (35.7-47.0); Hemoglobin 6.4 GM/DL (12.0-16.0)
[2016-09-02 07:43] LABS: Band Neutrophils 1 % (0-10); Elliptocytes Few; Eosinophils 4 % (0-10); Hypochromasia 1+; Lymphocytes 50 % (20-55); Nucleated Red Blood Cells 4 (0-5); Platelet Estimate Adequate; Polychromasia Slight; Segmented Neutrophils 43 % (50-85); Sickle Cells Few; Target Cells Few; Total Cells Counted 100
[2016-09-02 07:44] LABS: Howell-Jolly Bodies Slight; Macrocytosis Slight; Pappenheimer Bodies Slight
[2016-09-02 07:46] LABS: Calcium 8.4 MG/DL (8.5-10.1); Osmolality,Calculated 274.7 MOS/KG (273-304); Potassium 4.2 MMOL/L (3.5-5.1)
[2016-09-02] MEDS: FOLIC ACID 1 MG TABLET PO SCH (08:00)
[2016-09-02] MEDS: HYDROXYUREA 500 MG CAPSULE PO SCH (08:00)
[2016-09-02] MEDS: PANTOPRAZOLE 40 MG TABLET PO SCH (08:00)
[2016-09-02] MEDS ORDERED: DEFERASIROX 180 MG PO SCH (09:00)
--- NOTE | 2016-09-02 11:14 | Hospitalist Progress Note ---
Assessment and Plan (1) Anemia Status: Chronic Assessment and plan: H/H continues to drop to 6.4/17.5 Patient previously refused blood transfusion Has agreed to receive 1 unit PRBC transfusion Current Visit: No (2) Sickle cell pain crisis Status: Acute Assessment and plan: Dilaudid and norco prn wilketorolac prn IV fluids and supplemental oxygen Current Visit: Yes Hospitalist: Subjective Interval history: No acute events overnight. Patient still complaining of pain. Exam - Constitutional Vitals: Period Temp Pulse Resp BP Sys/Whaley Pulse Ox Last 24 Hr 97.4 F-98.9 F 82-112 18-19 97-117/64-78 94-97 General appearance: normal weight - Head Head exam: Present: normocephalic, atraumatic - Eye Eye exam: Present: EOMI Pupils: Present: XENIA - ENT ENT exam: Present: normal exam - Neck Neck exam: Present: normal inspection - Respiratory Respiratory exam: Present: clear to auscultation bilaterally - Cardiovascular Cardiovascular exam: Present: regular rate and rhythm - GI/Abdominal GI/Abdominal exam: Present: normal bowel sounds, soft. Absent: tenderness, rebound - Extremities Exam Extremities exam: Present: normal inspection - Back Exam Back exam: Present: normal inspection - Neurological Exam Neurological exam: Present: alert, oriented X3 - Psychiatric Psychiatric exam: Present: normal affect, normal mood - Skin Skin exam: Present: warm, intact Results - Labs CBC & BMP: 09/02/16 06:23 09/02/16 06:23
[2016-09-02] MEDS: LEVOFLOXACIN INJ 750 MG in PREMIX 1 EACH IV SCH (15:39)
[2016-09-02] MEDS: SODIUM CHLORIDE 0.9% 1,000 ML IV SCH (15:41)
[2016-09-02] MEDS: RIVAROXABAN 20 MG TABLET PO SCH (16:54)
[2016-09-03] MEDS: HYDROmorphone 2 MG/1 ML VIAL IV PRN ×8 (02:19→23:15)
[2016-09-03] MEDS: diphenhydrAMINE 50 MG/1 ML VIAL IV PRN ×4 (02:23→20:20)
[2016-09-03] MEDS: KETOROLAC 15 MG/1 ML VIAL IV PRN ×4 (04:30→23:18)
[2016-09-03 05:23] LABS: Basophils % 0.3 % (0.0-0.8); Eosinophils # 0.8 10*3/uL (0.0-0.87); Eosinophils % 7.6 % (0.00-10.9); Hematocrit 20.4 VOL% (35.7-47.0); Hemoglobin 7.4 GM/DL (12.0-16.0); Immature Granulocytes % 0.5 %; Immature Granulocytes Absolute 0.05 #; Lymphocytes # 4.2 10*3/uL (1.4-4.0); Mean Corpuscular HGB Conc 36.3 GM/DL (32-36); Mean Corpuscular Hemoglobin 34 PG (27-34); Mean Platelet Volume 10.9 FL (9.6-12.0); Monocytes # 0.8 10*3/uL (0.11-0.8); Monocytes % 7.1 % (1.7-12.7); NRBC # 0.87 10*3/uL; Neutrophils # 4.7 10*3/uL (1.4-7.4); Neutrophils % 44.5 % (38.7-73.9); Platelet Count 273 T/CUMM (130-400); Red Blood Count 2.17 MC/CUMM (3.8-5.5); Red Cell Distribution Width 19.8 % (9.3-17.3); White Blood Count 10.6 T/CUMM (4-12)
[2016-09-03] MEDS: SODIUM CHLORIDE 0.9% 1,000 ML IV SCH ×2 (05:28→22:57)
--- NOTE | 2016-09-03 14:59 | Hospitalist Progress Note ---
Assessment and Plan (1) Anemia Status: Chronic Assessment and plan: H/H responded appropriately to 1 unit PRBC, H/H now 7.4/20.4 Will transfuse another unit today Current Visit: No (2) Sickle cell pain crisis Status: Acute Assessment and plan: Dilaudid and norco prn ketorolac prn IV fluids and supplemental oxygen Current Visit: Yes Hospitalist: Subjective Interval history: No acute events overnight. Patient reports that she is doing the same. She is asking to receive the second unit of which was ordered a couple of days ago. Exam - Constitutional Vitals: Period Temp Pulse Resp BP Sys/Whaley Pulse Ox Last 24 Hr 97.2 F-99.5 F 62-85 16-20 93-140/58-74 95-100 General appearance: over weight - Head Head exam: Present: normocephalic, atraumatic - Eye Eye exam: Present: EOMI Pupils: Present: XENIA - ENT ENT exam: Present: normal exam - Neck Neck exam: Present: normal inspection - Respiratory Respiratory exam: Present: clear to auscultation bilaterally. Absent: rhonchi, wheezes - Cardiovascular Cardiovascular exam: Present: regular rate and rhythm - GI/Abdominal GI/Abdominal exam: Present: normal bowel sounds, soft. Absent: tenderness, rebound - Extremities Exam Extremities exam: Present: normal inspection - Back Exam Back exam: Present: normal inspection - Neurological Exam Neurological exam: Present: alert, oriented X3 - Psychiatric Psychiatric exam: Present: normal affect, normal mood - Skin Skin exam: Present: warm, intact Results - Labs CBC & BMP: 09/03/16 04:34 09/02/16 06:23
[2016-09-03] MEDS ORDERED: diphenhydrAMINE CAP 25 MG CAPSULE PO ONE (15:33)
[2016-09-03] MEDS: HYDROXYUREA 500 MG CAPSULE PO SCH ×2 (15:45→16:19)
[2016-09-03] MEDS: RIVAROXABAN 20 MG TABLET PO SCH ×2 (15:45→16:20)
[2016-09-03] MEDS: FOLIC ACID 1 MG TABLET PO SCH ×2 (15:45→16:19)
[2016-09-03] MEDS: DEFERASIROX 720 MG PO SCH ×2 (15:47→16:19)
[2016-09-03] MEDS: PANTOPRAZOLE 40 MG TABLET PO SCH (16:19)
[2016-09-03] MEDS: LEVOFLOXACIN INJ 750 MG in PREMIX 1 EACH IV SCH (20:22)
[2016-09-04] MEDS: HYDROmorphone 2 MG/1 ML VIAL IV PRN ×5 (02:38→19:44)
[2016-09-04] MEDS: diphenhydrAMINE 50 MG/1 ML VIAL IV PRN ×3 (02:40→15:21)
[2016-09-04] MEDS: KETOROLAC 15 MG/1 ML VIAL IV PRN (05:20)
[2016-09-04 05:28] LABS: Basophils % 0.4 % (0.0-0.8); Eosinophils # 0.8 10*3/uL (0.0-0.87); Hematocrit 22.7 VOL% (35.7-47.0); Hemoglobin 8.3 GM/DL (12.0-16.0); Immature Granulocytes % 0.4 %; Immature Granulocytes Absolute 0.04 #; Lymphocytes # 3.8 10*3/uL (1.4-4.0); Lymphocytes % 40.8 % (21.3-54.2); Mean Corpuscular HGB Conc 36.6 GM/DL (32-36); Mean Corpuscular Hemoglobin 34 PG (27-34); Mean Corpuscular Volume 91.5 FL (87-102); Mean Platelet Volume 10.6 FL (9.6-12.0); Monocytes # 0.6 10*3/uL (0.11-0.8); Monocytes % 6.8 % (1.7-12.7); Neutrophils # 3.9 10*3/uL (1.4-7.4); Neutrophils % 42.6 % (38.7-73.9); Platelet Count 243 T/CUMM (130-400); Red Blood Count 2.48 MC/CUMM (3.8-5.5); Red Cell Distribution Width 18.9 % (9.3-17.3); White Blood Count 9.2 T/CUMM (4-12)
[2016-09-04 06:07] LABS: Eosinophils 10 % (0-10); Hypochromasia 1+; Lymphocytes 42 % (20-55); Microcytosis 1+; Nucleated Red Blood Cells 5 (0-5); Segmented Neutrophils 44 % (50-85); Total Cells Counted 100
[2016-09-04 06:08] LABS: Anisocytosis 1+; Ovalocytes Few; Pappenheimer Bodies Few; Target Cells Few
[2016-09-04 06:09] LABS: Platelet Estimate Normal; Polychromasia Slight; Sickle Cells Few
--- NOTE | 2016-09-04 07:58 | XRay Report ---
XR chest 1V Indication: Shortness of breath Comparison: Chest x-ray 09/01/2016 Technique: Portable AP chest was performed. Findings: Heart size is stable in level and normal in size. Right-sided venous access device is stable. Pulmonary vasculature appears within normal limits. Nonspecific interstitial stranding in the lung bases may in part reflect atelectasis given the technique and degree of inspiration. Bones and soft tissues demonstrate no significant interval change. Prior cholecystectomy is demonstrated. Impression: 1. Nonspecific interstitial stranding in the lung bases may reflect atelectasis. No specific findings to suggest acute pathology is present. 09/04/2016 7:55 AM PROCEDURE INTERPRETED AT [facility] DEPARTMENT OF RADIOLOGY Final Report Signed by: Dr. Tyler Fregoso
[2016-09-04] MEDS: FOLIC ACID 1 MG TABLET PO SCH (09:03)
[2016-09-04] MEDS: HYDROXYUREA 500 MG CAPSULE PO SCH (09:03)
[2016-09-04] MEDS: PANTOPRAZOLE 40 MG TABLET PO SCH (09:03)
[2016-09-04] MEDS ORDERED: MORPHINE ER 30 MG TABLET PO PRN (10:39)
[2016-09-04] MEDS: SODIUM CHLORIDE 0.9% 1,000 ML IV SCH (11:56)
[2016-09-04] MEDS: MORPHINE ER 30 MG TABLET PO SCH ×2 (12:10→23:16)
--- NOTE | 2016-09-04 13:21 | Hospitalist Progress Note ---
Assessment and Plan (1) Anemia Status: Chronic Assessment and plan: She has responded well to two unit blood transfusion Current Visit: No (2) Sickle cell pain crisis Status: Acute Assessment and plan: Dilaudid and norco prn Restarting long acting morphine, decreasing interval of dilaudid ketorolac prn IV fluids and supplemental oxygen Current Visit: Yes Hospitalist: Subjective Interval history: No acute events overnight. Patient continues to complain of all over pain including chest pain. CXR without infiltrate. On entering room she appears comfortable, lying in bed on, playing on her phone. Once I enter room she starts moaning and says that she is in pain. Will restart her long acting morphine and increase the interval in which she can receive dilaudid. She responded well to blood transfusion yesterday. Exam - Constitutional Vitals: Period Temp Pulse Resp BP Sys/Whaley Pulse Ox Last 24 Hr 97.6 F-99.2 F 75-85 16-22 90-130/50-74 93-100 General appearance: normal weight - Head Head exam: Present: normocephalic, atraumatic - Eye Eye exam: Present: EOMI Pupils: Present: XENIA - ENT ENT exam: Present: normal exam - Neck Neck exam: Present: normal inspection - Respiratory Respiratory exam: Present: clear to auscultation bilaterally - Cardiovascular Cardiovascular exam: Present: regular rate and rhythm - GI/Abdominal GI/Abdominal exam: Present: normal bowel sounds, soft - Extremities Exam Extremities exam: Present: normal inspection - Back Exam Back exam: Present: normal inspection - Neurological Exam Neurological exam: Present: alert, oriented X3 - Psychiatric Psychiatric exam: Present: normal affect, normal mood - Skin Skin exam: Present: warm, intact Results - Labs CBC & BMP: 09/04/16 04:55 09/02/16 06:23
[2016-09-04] MEDS: DEFERASIROX 720 MG PO SCH (16:50)
[2016-09-04] MEDS: RIVAROXABAN 20 MG TABLET PO SCH (17:55)
[2016-09-04] MEDS: LEVOFLOXACIN INJ 750 MG in PREMIX 1 EACH IV SCH (19:48)
[2016-09-05] MEDS: diphenhydrAMINE 50 MG/1 ML VIAL IV PRN ×2 (00:06→06:16)
[2016-09-05] MEDS: HYDROmorphone 2 MG/1 ML VIAL IV PRN ×2 (00:08→03:57)
[2016-09-05] MEDS: SODIUM CHLORIDE 0.9% 1,000 ML IV SCH (01:50)
[2016-09-05] MEDS: KETOROLAC 15 MG/1 ML VIAL IV PRN (04:31)
[2016-09-05 05:20] LABS: Basophils % 0.4 % (0.0-0.8); Eosinophils # 0.9 10*3/uL (0.0-0.87); Eosinophils % 8.5 % (0.00-10.9); Hematocrit 23.9 VOL% (35.7-47.0); Hemoglobin 8.5 GM/DL (12.0-16.0); Immature Granulocytes % 0.2 %; Immature Granulocytes Absolute 0.02 #; Lymphocytes # 4.9 10*3/uL (1.4-4.0); Mean Corpuscular HGB Conc 35.6 GM/DL (32-36); Mean Corpuscular Hemoglobin 33 PG (27-34); Mean Corpuscular Volume 92.6 FL (87-102); Monocytes # 0.6 10*3/uL (0.11-0.8); NRBC # 0.33 10*3/uL; Neutrophils # 4.2 10*3/uL (1.4-7.4); Neutrophils % 38.9 % (38.7-73.9); Platelet Count 243 T/CUMM (130-400); Red Blood Count 2.58 MC/CUMM (3.8-5.5); Red Cell Distribution Width 18.7 % (9.3-17.3); White Blood Count 10.7 T/CUMM (4-12)
[2016-09-05] MEDS ORDERED: HYDROmorphone 2 MG/1 ML VIAL IV PRN (07:29)
[2016-09-05] MEDS: HYDROXYUREA 500 MG CAPSULE PO SCH (08:46)
[2016-09-05] MEDS: FOLIC ACID 1 MG TABLET PO SCH (08:47)
[2016-09-05] MEDS: PANTOPRAZOLE 40 MG TABLET PO SCH (08:47)
[2016-09-05] MEDS: MORPHINE ER 30 MG TABLET PO SCH (09:05)
[2016-09-05 11:44] VITALS: BP 101/69
--- NOTE | 2016-09-05 12:54 | Discharge Summary ---
Hospital Course - Hospital Course Hospital Course: Ms. Victor Hugo Stack is a 31 year old black female with a history of sickle cell disease, bronchitis, and pneumonia that presented to the ED with complaints of chest pain, lower back pain, and knee pain due to a sickle cell crisis. Patient stated that she had been having symptoms for the previous 2 days. Patient also reported that she has been having a constant aching feeling along with shortness of breath. Patient was admitted to the hospitalist service for sickle cell pain crisis. She was treated with IV fluids, IV pain medication and supplemental oxygen. Her hospital course was complicated by associated anemia, requiring two units PRBCs transfusion. She responded well and pain is now controlled. She has reached maximal benefit of inpatient stay and will be discharged to home. - Time spent with patient Time with patient DS: Less than 30 minutes (25) Diagnosis - Discharge Diagnosis (1) Anemia Status: Chronic (2) Sickle cell pain crisis Status: Resolved Discharge Plan - Discharge Data Disposition: Disch To Home/Self Care Condition at Discharge: Stable Discharge Diet: advance to your usual diet Activity: increase activity as tolerated Hygiene: no restrictions Weight Bearing at Discharge: weight bear as tolerated Driving: other (no driving while taking narcotic pain medications) - Discharge Medications New HYDROcodone/ACETAMIN 5-325 [Tenino 5-325] 1 tablet PO Q4H PRN #20 tablet PRN Reason: Pain Mild (1-3) Continue Folic Acid Tab 1 mg PO DAILY tablet Morphine ER Tab [Ms Contin] 30 mg PO Q12H PRN PRN Reason: Pain Hydroxyurea [Hydrea] 1,000 mg PO DAILY Rivaroxaban [Xarelto] 20 mg PO DAILY W/SUPPER tablet Morphine Ir Tab [Morphine IR Tab] 15 mg PO Q4HR PRN #20 tablet PRN Reason: Pain Deferasirox [Jadenu] 720 mg PO DAILY HYDROmorphone TAB [Dilaudid Tab] 4 mg PO Q4H PRN #20 tablet PRN Reason: Pain Moderate (4-7) - Follow Up or Referral - Forms/Instructions Exam - Constitutional Vitals: Period Temp Pulse Resp BP Sys/Whaley Pulse Ox Last 24 Hr 97.6 F-98.9 F 71-88 18-20 99-131/69-95 94-100 General appearance: normal weight - Head Head exam: Present: normocephalic, atraumatic - Eye Eye exam: Present: EOMI Pupils: Present: XENIA - ENT ENT exam: Present: normal exam - Neck Neck exam: Present: normal inspection - Respiratory Respiratory exam: Present: clear to auscultation bilaterally. Absent: rhonchi, wheezes - Cardiovascular Cardiovascular exam: Present: regular rate and rhythm - GI/Abdominal GI/Abdominal exam: Present: normal bowel sounds, soft. Absent: tenderness, rebound - Extremities Exam Extremities exam: Present: normal inspection - Back Exam Back exam: Present: normal inspection - Neurological Exam Neurological exam: Present: alert, oriented X3 - Psychiatric Psychiatric exam: Present: normal affect, normal mood - Skin Skin exam: Present: warm, intact Discharge Results Labs on day of discharge: Labs from last 24 hours 09/05/16 04:23 WBC 10.7 RBC 2.58 L Hgb 8.5 L Hct 23.9 L MCV 92.6 MCH 33 MCHC 35.6 RDW 18.7 H Plt Count 243 MPV 11.0 Neut % (Auto) 38.9 Lymph % (Auto) 46.0 [place] % (Auto) 6.0 Eos % (Auto) 8.5 Baso % (Auto) 0.4 Neut # (Auto) 4.2 Lymph # (Auto) 4.9 H [place] # (Auto) 0.6 Eos # (Auto) 0.9 H Baso # (Auto) 0.0 Immature Gran % 0.2 Nucleated RBC % 3.1 Immature Gran # 0.02 Nucleated RBCs # 0.33 DS: Provider Date of admission: 08/31/16 12:47 Primary care physician: . No PCP Attending physician on admission: Jesús Nash MD Discharging clinician: Oscar Kuhn MD
== END 2016-09-05 14:07 | disposition home or self-care (01) | DRG 812 ==
LOC: N.ED 10:33 → SUATTDRO 12:47 → N.EDINP 12:47 → N.5E 14:24
PROVIDERS: ADMIT Internal Medicine Infectious Disease; ATTEND Internal Medicine